=== PATIENT | female | born 1960 | race Caucasian/White ===

== ENCOUNTER 2016-12-24 03:41 | Inpatient (IN) ==
[~2016-12-24 03:41] MED LIST: Naloxone 0.4 MG/ML INJ IVP PRN
[2016-12-24] MEDS ORDERED: 0.9 % Sodium Chloride 500 ML IVC ONE (03:46)
--- NOTE | 2016-12-24 03:50 | Internal Med History&Physical ---
Date of Encounter: 12/24/16 Time of Encounter: 03:49 Assessment and Plan (1) Pyelonephritis, acute Current visit: Yes Status: Acute Treat with ceftriaxone. Urine cultures and blood cultures requested - patient is transferred from another hospital. He may need to check cultures sent from there, as the pt received antibiotics prior to transfer (2) Acute renal failure Current visit: Yes Status: Acute Possibly combination of prerenal and postobstructive. Continue IV fluids. Urology consultation for possible ureteral stent placement. Qualifiers: Acute renal failure type: unspecified Qualified Code(s): N17.9 - Acute kidney failure, unspecified (3) Ureteral stone Current visit: Yes Status: Acute Pt is in acute renal failure. Urology consultation for possible ureteral stent placement. (4) Chronic back pain Current visit: Yes Status: Chronic Pt has morpine pump - to continue Qualifiers: Back pain location: low back pain Back pain laterality: unspecified Sciatica presence: without sciatica Qualified Code(s): M54.5 - Low back pain; G89.29 - Other chronic pain (5) Hypertension Current visit: Yes Status: Chronic Hold antihypertensives Qualifiers: Hypertension type: essential hypertension Qualified Code(s): I10 - Essential (primary) hypertension (6) Hematoma of right hip Current visit: Yes Status: Acute No fractures reported. Conservative management. Qualifiers: Encounter type: initial encounter Qualified Code(s): S70.01XA - Contusion of right hip, initial encounter Internal Medicine - H&P: HPI Chief complaint: Confusion; abnormal labs Admitted From: Hospital to Hospital Transfer Plans for Post Hospital Care: Home History of present illness: Ms. Yeager is a 56 year old female With Past medical history significant for diabetes, GERD, hypertension, depression, chronic back pain - on morphine pump; s/p cholecystectomy, hysterectomy. She was sent to [facility] ER, by PCP for abnormal labs. She was noted to have UTI and ureteric stone and pt is transferred to [facility] for further management. Labs showed WBC of 422.7, hemoglobin 9.5, platelets 77, serum sodium 125 potassium 2.6, BUN 46, creatinine 2.44, bicarbonate 28, albumin 2.4, ALT 27 is, AST 41. INR 1.2. Urinalysis showed moderate leukocytes and positive nitrate; too numerous to count WBC and large blood. CT scan of head showed no depressed skull fracture or intracranial hemorrhage. CT scan of the abdomen and pelvis showed hematoma overlying the hip at the level of the trochanters. In the widest dimension measuring 7.8 cm without extension to the underlying muscle associated fractures. 7 mm calculus in the proximal right ureter with mild hydroureter and moderate hydronephrosis of the right kidney. Chest x-ray reported no acute radiographic findings. Patient reports that she was feeling confused, tired and sleepy on day yesterday. She denies chest pain, shortness of breath, cough, congestion, fever , chills. She denies abdominal pain, but reports dysuria. No hematuria. No diarrhea. Reports some nausea but no vomiting. Family Hx: Her father had diabetes; her sister had CAD/CABG Past Med Surg Social Fam HX - Past Medical History Medical history: diabetes, GERD, hypertension Psychiatric history: depression - Past Surgical History Surgical History: cholecystectomy, hysterectomy, orthopedic, other - Social History Smoking Status: Never smoker Smokeless Tobacco Status: No Alcohol use: none Drug use: none - Family History Mother Hx Family Genitourinary Disorders: No (No stones.) Internal Medicine - H&P: Meds AcetaZOLAMIDE [Diamox Sequels] 500 mg PO DAILY 06/17/16 [History] Alendronate Sodium [Fosamax] 70 mg PO QWEEK 06/17/16 [History] Bethanechol Chloride [Urecholine] 25 mg PO TID 06/17/16 [History] Calcium Carbonate [Calcium] 500 mg PO DAILY 06/17/16 [History] Cholecalciferol (D-3) [Vitamin D] 2,000 unit PO DAILY 06/17/16 [History] Furosemide [Lasix] 40 mg PO DAILY 06/17/16 [History] Gabapentin [Neurontin] 1,200 mg PO HS 06/17/16 [History] Gabapentin [Neurontin] 600 mg PO BID 06/17/16 [History] Ibuprofen [Motrin] 600 mg PO Q8HR PRN 06/17/16 [History] Omeprazole [PriLOSEC] 40 mg PO DAILY 06/17/16 [History] Vit#98/Ferrous Fum/FA [Kpn Tablet] 1 tab PO DAILY 06/17/16 [ History] Promethazine [Phenergan] 25 mg PO Q8HR PRN 06/17/16 [History] Sucralfate [Carafate] 1 gm PO BID 06/17/16 [History] Thyroid,Pork [[place] Thyroid] 60 mg PO DAILY 06/17/16 [History] Tizanidine HCl [Zanaflex] 4 mg PO BID PRN 06/17/16 [History] TraZODone 50 mg PO HS 06/17/16 [History] Venlafaxine HCl [Effexor Xr] 75 mg PO QAM 06/17/16 [History] Venlafaxine XR (24 HR) [Effexor XR] 37.5 mg PO HS 06/17/16 [History] Allergies losartan [From Cozaar] Allergy (Unverified 06/17/16 11:42) Hives spironolactone [From Aldactone] Allergy (Verified 06/17/16 11:42) Hives Oxycodone [From OxyContin] Adverse Reaction (Verified 06/17/16 11:42) See Comments unresponsive All Systems PM: A 10-system review of systems was performed and is negative for pertinent findings except as documented above in the HPI. - Constitutional Vitals: Temp Pulse Resp BP Pulse Ox 97.6 F 79 17 98/55 96 12/24/16 02:44 12/24/16 02:44 12/24/16 02:44 12/24/16 02:44 12/24/16 02:44 Exam: General: Not in acute distress at the time of my evaluation HEENT: Oral mucosa is dry. No conjunctival palor or scleral icterus Neck: No obvious neck swellings Lungs: Clear to auscultation Cardiac: Regular rate and rhythm. systolic murmur present Abdomen: Soft. Right renal angle tenderness present. Bowel sounds present Neurological: Alert and oriented. No gross localizing deficits Psych: Not aggressive or agitated Extremities: Trace leg edema Skin: No generalized rash Internal Med - H&P Results - Labs CBC & Chem 7: 12/24/16 05:31 12/24/16 05:31 - EKG Data -: EKG Interpreted by Myself EKG shows normal: sinus rhythm
[2016-12-24 05:49] LABS: INR 1.3; Prothrombin Time 14.5 Seconds (9.4-12.1)
[2016-12-24 05:50] LABS: Hematocrit 26.3 % (35.3-44.9); Hemoglobin 9.1 g/dL (11.5-15.4); Mean Corpuscular HGB Conc 34.6 g/dL (31.6-35.5); Mean Corpuscular Hemoglobin 28.7 pg (28.0-33.3); Mean Platelet Volume 9.1 fL (9.4-12.4); Red Blood Count 3.17 M/mcL (3.82-4.97); Red Cell Distribution Width 14.2 % (11.5-14.5)
[2016-12-24 05:57] LABS: Calcium 8.1 mg/dL (8.6-10.8); Magnesium 1.4 mg/dL (1.6-2.6); Potassium 2.6 mEq/L (3.5-4.5)
[2016-12-24] MEDS: Acetaminophen 325 MG TABLET PO PRN ×2 (05:57→18:46)
[2016-12-24 06:02] LABS: Platelet Count 65 K/mcL (140-400)
--- NOTE | 2016-12-24 07:14 | Urology - Consult Note ---
Date of Encounter: 12/24/16 Time of Encounter: 07:11 - Assessment and Plan (1) Ureteral stone Current Visit: Yes Status: Acute Assessment and plan: 56 year old woman with a uti and a right ureteral stone. I recommend proceeding with a cystoscopy and right ureteral stent placement. All risks of the procedure were informed. She is willing to proceed. Appreciate IM support. Will follow creatinine. Continue ceftriaxone. (2) Acute renal failure Current Visit: Yes Status: Acute Qualifiers: Qualified Code(s): N17.9 - Acute kidney failure, unspecified (3) Urinary tract infection Current Visit: Yes Status: Acute Qualifiers: Qualified Code(s): N10 - Acute pyelonephritis Urology CN:HPI Consult date: 12/24/16 Reason for consult Urology: Other (right ureteral stone and uti) History of present illness: 56 year old woman presents with right flank pain. The pain started 4-5 days ago and became more severe yesterday. She was seen at [facility]. A Ct showed a stone within the right proximal ureter with hydronephrosis. She had concern for a UTI and GILDA. She was transferred to [facility] for further care. The pain was severe and radiated to the groin. She denies any fevers or chills. The pain was sharp. Past Med Surg Social Fam HX - Past Medical History Medical history: diabetes, GERD, hypertension Psychiatric history: depression - Past Surgical History Surgical History: cholecystectomy, hysterectomy, orthopedic, other - Social History Smoking Status: Never smoker Smokeless Tobacco Status: No Alcohol use: none Drug use: none - Family History Mother Hx Family Genitourinary Disorders: No (No stones.) Medications and Allergies AcetaZOLAMIDE [Diamox Sequels] 500 mg PO DAILY 06/17/16 [History] Alendronate Sodium [Fosamax] 70 mg PO QWEEK 06/17/16 [History] Bethanechol Chloride [Urecholine] 25 mg PO TID 06/17/16 [History] Calcium Carbonate [Calcium] 500 mg PO DAILY 06/17/16 [History] Cholecalciferol (D-3) [Vitamin D] 2,000 unit PO DAILY 06/17/16 [History] Furosemide [Lasix] 40 mg PO DAILY 06/17/16 [History] Gabapentin [Neurontin] 1,200 mg PO HS 06/17/16 [History] Gabapentin [Neurontin] 600 mg PO BID 06/17/16 [History] Ibuprofen [Motrin] 600 mg PO Q8HR PRN 06/17/16 [History] Omeprazole [PriLOSEC] 40 mg PO DAILY 06/17/16 [History] Vit#98/Ferrous Fum/FA [Kpn Tablet] 1 tab PO DAILY 06/17/16 [ History] Promethazine [Phenergan] 25 mg PO Q8HR PRN 06/17/16 [History] Sucralfate [Carafate] 1 gm PO BID 06/17/16 [History] Thyroid,Pork [[place] Thyroid] 60 mg PO DAILY 06/17/16 [History] Tizanidine HCl [Zanaflex] 4 mg PO BID PRN 06/17/16 [History] TraZODone 50 mg PO HS 06/17/16 [History] Venlafaxine HCl [Effexor Xr] 75 mg PO QAM 06/17/16 [History] Venlafaxine XR (24 HR) [Effexor XR] 37.5 mg PO HS 06/17/16 [History] Allergies losartan [From Cozaar] Allergy (Unverified 06/17/16 11:42) Hives spironolactone [From Aldactone] Allergy (Verified 06/17/16 11:42) Hives Oxycodone [From OxyContin] Adverse Reaction (Verified 06/17/16 11:42) See Comments unresponsive Review of Systems - Constitutional no chills, no fever(s) - EENT Nose, mouth and throat: no dizziness - Cardiovascular no chest pain - Respiratory no dyspnea - Gastrointestinal no nausea, no vomiting - Genitourinary Genitourinary: flank pain, no hematuria - Musculoskeletal no back pain - Integumentary no erythema, no rash - Neurological no weakness - Psychiatric no suicidal ideation - Hematologic/Lymphatic no easy bleeding - Allergic/Immunologic no wheezing Exam Initial Vital Signs Temp Pulse Resp BP Pulse Ox 97.6 F 79 17 98/55 96 12/24/16 02:44 12/24/16 02:44 12/24/16 02:44 12/24/16 02:44 12/24/16 02:44 - General physical appearance Present: well developed, well nourished, no distress - Eyes Absent: icteric - ENT Present: normal nares - Neck Present: trachea midline - Respiratory Present: normal respiratory effort - Cardiovascular Cardiovascular exam IM: RRR - Abdomen Abdomen: Present: soft Urology Results - Labs 12/24/16 05:31 12/24/16 05:31 Abnormal lab results WBC 25.7 K/mcL (4.3-11.1) H 12/24/16 05:31 RBC 3.17 M/mcL (3.82-4.97) L 12/24/16 05:31 Hgb 9.1 g/dL (11.5-15.4) L 12/24/16 05:31 Hct 26.3 % (35.3-44.9) L 12/24/16 05:31 Plt Count 65 K/mcL (140-400) L 12/24/16 05:31 MPV 9.1 fL (9.4-12.4) L 12/24/16 05:31 PT 14.5 Seconds (9.4-12.1) H 12/24/16 05:31 Sodium 126 mEq/L (136-145) L 12/24/16 05:31 Potassium 2.6 mEq/L (3.5-4.5) L 12/24/16 05:31 Chloride 89 mEq/L (98-109) L 12/24/16 05:31 BUN 48 mg/dL (7-20) H 12/24/16 05:31 Creatinine 2.20 mg/dL (0.57-1.11) H 12/24/16 05:31 Est GFR ( Amer) 28 (> 60) L 12/24/16 05:31 Est GFR (Non-Af Amer) 23 (> 60) L 12/24/16 05:31 Calculated Osmolality 273 (280-300) L 12/24/16 05:31 Calcium 8.1 mg/dL (8.6-10.8) L 12/24/16 05:31 Magnesium 1.4 mg/dL (1.6-2.6) L 12/24/16 05:31 Diabetes panel 12/24/16 Range/Units 05:31 Sodium 126 L (136-145) mEq/L Potassium 2.6 L (3.5-4.5) mEq/L Chloride 89 L (98-109) mEq/L Carbon Dioxide 24 (19-29) mEq/L BUN 48 H (7-20) mg/dL Creatinine 2.20 H (0.57-1.11) mg/dL Glucose 72 (70-99) mg/dL Calcium 8.1 L (8.6-10.8) mg/dL Calcium panel 12/24/16 Range/Units 05:31 Calcium 8.1 L (8.6-10.8) mg/dL Pituitary panel 12/24/16 Range/Units 05:31 Sodium 126 L (136-145) mEq/L Potassium 2.6 L (3.5-4.5) mEq/L Chloride 89 L (98-109) mEq/L Carbon Dioxide 24 (19-29) mEq/L BUN 48 H (7-20) mg/dL Creatinine 2.20 H (0.57-1.11) mg/dL Glucose 72 (70-99) mg/dL Calcium 8.1 L (8.6-10.8) mg/dL Adrenal panel 12/24/16 Range/Units 05:31 Sodium 126 L (136-145) mEq/L Potassium 2.6 L (3.5-4.5) mEq/L Chloride 89 L (98-109) mEq/L Carbon Dioxide 24 (19-29) mEq/L BUN 48 H (7-20) mg/dL Creatinine 2.20 H (0.57-1.11) mg/dL Glucose 72 (70-99) mg/dL Calcium 8.1 L (8.6-10.8) mg/dL All other labs normal. - Imaging CT scan - abdomen: report reviewed, image reviewed CT scan - pelvis: report reviewed, image reviewed Consult Discharge Plan - Plan Referrals: NO,PCP [Primary Care Provider] -
[2016-12-24] MEDS ORDERED: Potassium Chloride 40 MEQ, Lidocaine 1% 2 ML in D5% in Water 500 ML IVPB ONE (08:11)
[2016-12-24] MEDS ORDERED: Magnesium Sulfate 2 GM in D5% in Water 100 ML IVPB ONE (08:13)
--- NOTE | 2016-12-24 09:52 | Anesthesia Evaluation PreOp ---
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 (Chronic Back Pain.....has morphine pump) Other Medical History: Renal (Acute Renal Failure...Hydronephrosis), Thyroid, GERD Anesthesia History: No Prior Anesthetic Complications : No Alcohol Use: none Drug use: none Medications and Allergies AcetaZOLAMIDE [Diamox Sequels] 500 mg PO DAILY 06/17/16 [History] Alendronate Sodium [Fosamax] 70 mg PO QWEEK 06/17/16 [History] Bethanechol Chloride [Urecholine] 25 mg PO TID 06/17/16 [History] Calcium Carbonate [Calcium] 500 mg PO DAILY 06/17/16 [History] Cholecalciferol (D-3) [Vitamin D] 2,000 unit PO DAILY 06/17/16 [History] Furosemide [Lasix] 40 mg PO DAILY 06/17/16 [History] Gabapentin [Neurontin] 1,200 mg PO HS 06/17/16 [History] Gabapentin [Neurontin] 600 mg PO BID 06/17/16 [History] Ibuprofen [Motrin] 600 mg PO Q8HR PRN 06/17/16 [History] Omeprazole [PriLOSEC] 40 mg PO DAILY 06/17/16 [History] Vit#98/Ferrous Fum/FA [Kpn Tablet] 1 tab PO DAILY 06/17/16 [ History] Promethazine [Phenergan] 25 mg PO Q8HR PRN 06/17/16 [History] Sucralfate [Carafate] 1 gm PO BID 06/17/16 [History] Thyroid,Pork [[place] Thyroid] 60 mg PO DAILY 06/17/16 [History] Tizanidine HCl [Zanaflex] 4 mg PO BID PRN 06/17/16 [History] TraZODone 50 mg PO HS 06/17/16 [History] Venlafaxine HCl [Effexor Xr] 75 mg PO QAM 06/17/16 [History] Venlafaxine XR (24 HR) [Effexor XR] 37.5 mg PO HS 06/17/16 [History] Allergies losartan [From Cozaar] Allergy (Unverified 06/17/16 11:42) Hives spironolactone [From Aldactone] Allergy (Verified 06/17/16 11:42) Hives Oxycodone [From OxyContin] Adverse Reaction (Verified 06/17/16 11:42) See Comments unresponsive - Meds/Allergy Pre-op Review Medications Reviewed: Yes Allergies Reviewed: Yes Beta Blockers on Current Med List: No Anesthesia Results - Labs 12/24/16 05:31 12/24/16 05:31 - Imaging EKG: report reviewed (SR) Anesthesia Exam O2 Sat Height 1.68 m Weight 84.5 kg O2 Sat by Pulse Oximetry 98 O2 Sat by Pulse Oximetry 98 O2 Sat by Pulse Oximetry 96 O2 Sat by Pulse Oximetry 96 O2 Sat by Pulse Oximetry 96 Vital Signs Temp Pulse Resp BP Pulse Ox 97.6 F 79 17 98/55 96 12/24/16 02:44 12/24/16 02:44 12/24/16 02:44 12/24/16 02:44 12/24/16 02:44 Height: 5'6 Weight: 186 lbs NPO (# of Hours): MN - HEENT Pupil (Motor): Pupils equal, EOMI Oral Opening: Greater than 3 - 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 LOC: Oriented 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 Motor: Normal RUE, Normal LUE, Normal RLE, Normal LLE, Normal Face 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 - Cardiac Rhythm: Regular Murmur: None JVD: No Carotid Bruit: No - Pulmonary Breath Sounds: bilateral Clear Respiratory Effort: Symmetrical Anesthesia Assess/Plan ASA Score: 3 (HTN, ARF, Chronic Pain) Modified Franny Scale for Level of Consciousness: Cooperative, oriented, and tranquil Anesthetic Plan: General Monitoring Plan: Standard Monitors Recovery Plan: PACU (Discussed GA,agrees to proceed) <Humberto Olvera - Last Filed: 12/24/16 10:27> Anesthesia Results - Labs 12/24/16 05:31 12/24/16 05:31 Anesthesia Exam - HEENT Mallampati: II Teeth: Edentulous - 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
--- NOTE | 2016-12-24 10:07 | Internal Med Progress Note ---
Date of Encounter: 12/24/16 Time of Encounter: 09:00 - Assessment and plan (1) DVT prophylaxis Current Visit: Yes Status: Acute Assessment and plan: EPCD (2) Syncope Current Visit: Yes Status: Acute Assessment and plan: Patient had a syncope one week ago. Etiology is undetermined. Most likely due to dehydration caused by recent UTI. However, will often duplex carotid, echocardiogram, and cardiac monitoring to rule out cardio neurology problems Qualifiers: Syncope type: vasovagal syncope Qualified Code(s): R55 - Syncope and collapse (3) Hypokalemia Current Visit: Yes Status: Acute Assessment and plan: We will continue potassium supplement. (4) Acute renal failure Current Visit: Yes Status: Acute Assessment and plan: Will continue hydration and follow-up renal function Qualifiers: Acute renal failure type: unspecified Qualified Code(s): N17.9 - Acute kidney failure, unspecified (5) Hematoma of right hip Current Visit: Yes Status: Acute Assessment and plan: Due to recently syncope and a fall. Closely monitoring H and H. Qualifiers: Encounter type: initial encounter Qualified Code(s): S70.01XA - Contusion of right hip, initial encounter (6) Pyelonephritis, acute Current Visit: Yes Status: Acute Assessment and plan: Continue Rocephin treatment. Follow-up urine culture (7) Ureteral stone Current Visit: Yes Status: Acute Assessment and plan: Urology on case, plan for ureteral stent (8) Urinary tract infection Current Visit: Yes Status: Acute Assessment and plan: Plan as above Qualifiers: Urinary tract infection type: acute pyelonephritis Qualified Code(s): N10 - Acute pyelonephritis (9) Chronic back pain Current Visit: Yes Status: Chronic Assessment and plan: Continue morphine pump for chronic back pain. Follow-up with pain management as outpatient Qualifiers: Back pain location: low back pain Back pain laterality: unspecified Sciatica presence: without sciatica Qualified Code(s): M54.5 - Low back pain; G89.29 - Other chronic pain (10) Hypertension Current Visit: Yes Status: Chronic Assessment and plan: BP is not high. We will hold hypertension medications now because patient has syncope. Qualifiers: Hypertension type: essential hypertension Qualified Code(s): I10 - Essential (primary) hypertension - Time Spent With Patient 25 - 35 minutes - Subjective Interval history: Patient is a 56-year-old female admitted for UTI and ureter stone. Past medical history is significant for diabetes, hypertension, recent syncope, chronic back pain on morphine pump. Hx of bariatric surgery Patient was seen and examined. She had no fever. Still complaining of right flank pain. Vital signs stable. Urology saw patient and the plan for stenting today. Patient has low potassium and a low magnesium level, will give supplement. Patient has syncope one week ago, we will continuously monitor her heart rate, place echo and duplex carotid. - Constitutional Vitals: Temp Pulse Resp BP Pulse Ox 97.4 F L 76 16 102/58 98 12/24/16 08:05 12/24/16 08:05 12/24/16 08:05 12/24/16 08:05 12/24/16 08:38 General appearance: Present: A&O X 3, no acute distress, answers questions appropriately - Head Head exam: Present: atraumatic, normocephalic - Eye Eye exam: Present: PERRL, conjuntiva pink, sclera anicteric Pupils: Present: PERRL - Neck Neck exam general surgery: Present: supple, trachea midline. Absent: lymphadenopathy - Respiratory Respiratory exam: Present: CTAB. Absent: accessory muscle use, rales, rhonchi, wheezes - Cardiovascular Cardiovascular exam: Present: RRR, +S1, +S2. Absent: diastolic murmur, gallop, rubs, systolic murmur - GI/Abdominal GI/Abdominal exam: Present: normal bowel sounds, soft, no peritoneal signs. Absent: distended, tenderness - Extremities Exam Extremities exam: Present: warm, radial pulses palpable and symetrical. Absent : calf tenderness, cyanotic, pedal edema - Neurological Exam Neurological exam: Present: CN II-XII intact, oriented X3, no focal deficits. Absent: pronater drift, facial droop, speech deficit - Skin Skin exam: Present: dry, intact Internal Medicine: Result - Labs CBC & Chem 7: 12/24/16 05:31 12/24/16 05:31 Labs: Short CBC 12/24/16 Range/Units 05:31 WBC 25.7 H (4.3-11.1) K/mcL Hgb 9.1 L (11.5-15.4) g/dL Hct 26.3 L (35.3-44.9) % Plt Count 65 L (140-400) K/mcL BMP 12/24/16 05:31 Sodium 126 L Potassium 2.6 L Chloride 89 L Carbon Dioxide 24 BUN 48 H Creatinine 2.20 H Glucose 72 Calcium 8.1 L - ABG Interpretation ABG results: PT/INR, D-dimer PT 14.5 Seconds (9.4-12.1) H 12/24/16 05:31 Consult Discharge Plan - Plan Referrals: NO,PCP [Primary Care Provider] -
[2016-12-24] MEDS ORDERED: *HR* Midazolam HCl 2 MG/2 ML VIAL ONE (10:18)
[2016-12-24] MEDS ORDERED: Lidocaine -MPF 2% 2 ML VIAL ONE (10:18)
[2016-12-24] MEDS ORDERED: *HR* FentaNYL (PF) 100 MCG/2 ML VIAL ONE (10:18)
[2016-12-24] MEDS ORDERED: *HR* Propofol 200 MG/20 ML VIAL IVP ONE (10:18)
--- NOTE | 2016-12-24 11:15 | Operative Note ---
Date of procedure: 12/24/16 Pre-op diagnosis: Right ureteral stone, urinary tract infection Post-op diagnosis: same Procedure: Cystoscopy, right retrograde pyelogram, right ureteral stent placement. Implants: 6 Slovak by 24 cm double-J stent. Complications: None. Anesthesia: GETA Surgeon: Mikey Arteaga Estimated blood loss (cc): 1 Specimen: none Condition: stable Disposition: PACU Procedure in Detail: Indications: Teresita is a 56-year-old woman who has a history of nephrolithiasis and a urinary tract infection. She had a CT which showed a right proximal ureteral stone. She elected to undergo a cystoscopy and right ureteral stent placement. She was aware of the risks of the procedure including but not limited to bleeding, infection, injury to other structures, need for further procedures, stent irritation, need for nephrostomy tube, need for open repair, risks otherwise unforeseen, and the risk of anesthesia. She is willing to proceed. Procedure in Detail: After informed consent was obtained the patient was brought back to the operating room and placed in supine position. A time out was performed. General anesthesia was administered and an LMA was placed. She was then placed in the lithotomy position. She was prepped and draped in the usual sterile fashion. Cystoscopy was performed. The anterior urethra was normal. There was no evidence of bladder tumors. The ureteral orifices were in the normal orthotopic position. There was no duplication of the ureteral orifices. She had a large cystocele. The zip wire was placed in the right ureteral orifice. The open- ended catheter was placed over the wire into the distal ureter. The wire was placed into the kidney under fluoroscopic guidance. The open ended catheter was advanced into the kidney beyond the stone. A retrograde pyelogram was performed. There is no hydronephrosis. The wire was replaced. A 6 Slovak by 24cm JJ stent was then placed. There was a bit of a J-hook in the stent going into the lower pole calyx. The dangle strings were removed. The bladder was drained with a Mason catheter. The patient was then awakened from general anesthesia and brought to recovery room in good condition. All sponge, needle, and instrument counts were correct.
--- NOTE | 2016-12-24 13:49 | Anesthesia Evaluation Post Op ---
Date of Encounter: 12/24/16 Time of Encounter: 12:30 - Vital Signs Vital Signs: Vital Signs/O2 Sat/Glucose, Most Current Temp Pulse Resp BP Pulse Ox 12/24/16 12:13 97.9 F 80 16 98/44 97 12/24/16 12:02 97.2 F L 75 12 107/58 98 12/24/16 11:52 97.2 F L 71 12 99/58 99 12/24/16 11:42 71 10 100/59 97 12/24/16 11:32 69 8 100/56 97 12/24/16 11:22 97.2 F L 70 8 96/55 97 - Lungs Lungs: Clear Ascult./Percussion - Airway Airway: Non-obstructed - Cardiovascular Regular Rate - Mental Status Mental Status: Alert & Oriented, Answers Appropriately - Pain Pain Scale: 0 - Nausea Vomiting Nausea Vomiting: Not Present - Hydration Hydration: Ice chips - Discharge PostOp Status: Transfer Patient to floor
[2016-12-24] MEDS: 0.9 % Sodium Chloride 1,000 ML IVC SCH ×2 (18:36→18:38)
--- NOTE | 2016-12-24 19:47 | Carotid Imaging Report ---
Carotid Duplex Patient Name:Teresita Yeager Order Number:[id number] Procedure Date:12/24/2016 Date:8Age:56 yrs Gender:Female Lt BP:117 / 68 mmHg Rt.BP:117 / 68 mmHgHeart Rate: Location:[facility] Room #: 2NE34 Bag Machine Operator:Renee Salazar Referring MD:Guy Lovell MD guitar teacher:None Reading MD:Jose Zuniga MD , FACS Primary Indications:Syncope Risk Factors Yes/No Hypertension Diabetes Impressions: Findings: Right proximal ICA has nonstenotic plaque. Findings: Left carotid system is essentially normal. Findings Carotid Duplex: Right: There is nonstenotic plaque in the right proximal internal carotid artery. There is smooth heterogeneous plaque. There is nonstenotic plaque in the right eca. There is smooth heterogeneous plaque. Prior Study: No prior study available for comparison. Carotid Results Right PSV EDV Assessment Proximal CCA 137 11 Normal Mid CCA 63 16 Normal Distal CCA 55 16 Normal Bifurcation 59 18 Normal Proximal ICA 61 19 Non Stenotic Plaque Mid ICA 101 39 Normal Distal ICA 109 38 Normal ECA 97 11 Non Stenotic Plaque Vertebral Artery 69 18 Antegrade Flow Left PSV EDV Assessment Proximal CCA 100 20 Normal Mid CCA 71 18 Normal Distal CCA 75 23 Normal Bifurcation 64 21 Normal Proximal ICA 76 31 Normal Mid ICA 79 34 Normal Distal ICA 81 28 Normal ECA 99 14 Normal Vertebral Artery 78 20 Antegrade Flow Ratio's Right ICA/CCA Ratio: 1.73 ICA/CCA Values: 109/63 Left ICA/CCA Ratio: 1.14 ICA/CCA Values: 81/71 Updated by Jose Zuniga MD, FACS on 12/24/2016 7:43:38 PM Jose Zuniga MD electronically signed on 12/24/2016 7:44:12 PM with status of Final
[2016-12-24] MEDS ORDERED: NON-FORMULARY MEDICATION 1 EACH EACH (Alendronate Sodium [Fosamax] 70 MG) PO SCH (23:30)
[2016-12-25] MEDS: 0.9 % Sodium Chloride 1,000 ML IVC SCH (03:36)
[2016-12-25 07:02] LABS: Calcium 8.4 mg/dL (8.6-10.8); Potassium 3.1 mEq/L (3.5-4.5)
[2016-12-25 07:07] LABS: Basophils % 0.2 %; Hematocrit 25.9 % (35.3-44.9); Hemoglobin 9.1 g/dL (11.5-15.4); Mean Corpuscular HGB Conc 35.1 g/dL (31.6-35.5); Mean Corpuscular Hemoglobin 29.1 pg (28.0-33.3); Mean Corpuscular Volume 82.7 fL (83.0-100.0); Red Blood Count 3.13 M/mcL (3.82-4.97); Red Cell Distribution Width 14.7 % (11.5-14.5)
[2016-12-25 07:10] LABS: Basophils # 0.1 K/mcL (0.0-0.2); Immature Granulocytes % 4.6 % (0-4); Immature Platelets 4.4 % (1.1-6.1); Lymphocytes # 0.6 K/mcL (0.6-4.6); Lymphocytes % 2.4 %; Mean Platelet Volume 9.8 fL (9.4-12.4); Monocytes % 5.2 %; Neutrophils # 21.1 K/mcL (1.6-8.9); Segmented Neutrophils % 87.6 %
[2016-12-25] MEDS ORDERED: Naloxone 0.4 MG/ML INJ IVP PRN (07:18)
[2016-12-25] MEDS ORDERED: 0.9 % Sodium Chloride 1,000 ML IVC SCH (07:18)
[2016-12-25 07:25] LABS: Monocytes # 1.3 K/mcL (0.0-1.3); Platelet Count 82 K/mcL (140-400)
[2016-12-25] MEDS ORDERED: Sucralfate 1 GM TABLET PO SCH (07:30)
[2016-12-25] MEDS ORDERED: ZOLEDRONIC ACID 5 MG IV SCH (08:15)
[2016-12-25] MEDS ORDERED: [UNRECOGNIZED DRUG - OTHER] IV SCH (08:15)
--- NOTE | 2016-12-25 08:23 | Urology Progress Note ---
Date of Encounter: 12/25/16 Time of Encounter: 08:21 - Assessment and Plan (1) Ureteral stone Current Visit: Yes Status: Acute Assessment and plan: Status post right ureteral stent placement. We will treat the stone definitively at a later date once her infection clears. (2) Acute renal failure Current Visit: Yes Status: Acute Assessment and plan: Right ureteral stent has been placed. We'll closely monitor her renal function. If it does not improve, consider nephrology consultation. Qualifiers: Acute renal failure type: unspecified Qualified Code(s): N17.9 - Acute kidney failure, unspecified (3) Urinary tract infection Current Visit: Yes Status: Acute Assessment and plan: Continue IV antibiotics. Await urine culture results. Qualifiers: Urinary tract infection type: acute pyelonephritis Qualified Code(s): N10 - Acute pyelonephritis Progress Note Narrative: Status post cystoscopy and right ureteral stent placement. Mason catheter was placed. She has clear urine. No fevers overnight. White blood cell count and creatinine are still elevated. Urine cultures are pending. She is tolerating diet. Objective Initial Vital Signs Temp Pulse Resp BP Pulse Ox 97.6 F 79 17 98/55 96 12/24/16 02:44 12/24/16 02:44 12/24/16 02:44 12/24/16 02:44 12/24/16 02:44 - General physical appearance Present: well developed, well nourished, no distress - Respiratory Present: normal respiratory effort - Abdomen Present: soft - Genitourinary Urine Appearance: Present: Clear - Labs 12/25/16 06:33 12/25/16 06:33 Diabetes panel 12/25/16 Range/Units 06:33 Sodium 131 L (136-145) mEq/L Potassium 3.1 L (3.5-4.5) mEq/L Chloride 96 L (98-109) mEq/L Carbon Dioxide 24 (19-29) mEq/L BUN 54 H (7-20) mg/dL Creatinine 2.15 H (0.57-1.11) mg/dL Glucose 154 H (70-99) mg/dL Calcium 8.4 L (8.6-10.8) mg/dL Calcium panel 12/25/16 Range/Units 06:33 Calcium 8.4 L (8.6-10.8) mg/dL Pituitary panel 12/25/16 Range/Units 06:33 Sodium 131 L (136-145) mEq/L Potassium 3.1 L (3.5-4.5) mEq/L Chloride 96 L (98-109) mEq/L Carbon Dioxide 24 (19-29) mEq/L BUN 54 H (7-20) mg/dL Creatinine 2.15 H (0.57-1.11) mg/dL Glucose 154 H (70-99) mg/dL Calcium 8.4 L (8.6-10.8) mg/dL Adrenal panel 12/25/16 Range/Units 06:33 Sodium 131 L (136-145) mEq/L Potassium 3.1 L (3.5-4.5) mEq/L Chloride 96 L (98-109) mEq/L Carbon Dioxide 24 (19-29) mEq/L BUN 54 H (7-20) mg/dL Creatinine 2.15 H (0.57-1.11) mg/dL Glucose 154 H (70-99) mg/dL Calcium 8.4 L (8.6-10.8) mg/dL - VTE Documentation of Mechanical Device: Intermittent pneumatic compression device Consult Discharge Plan - Plan Referrals: NO,PCP [Primary Care Provider] -
--- NOTE | 2016-12-25 08:44 | ECHO - Doppler Report ---
Echocardiogram Name: Teresita Yeager Date of Study: 12/24/2016 Date: 1960 Ht: 66.0 in Medical Record#: [id number] Age: 56 Wt: 186.0 lb Gender: Female BSA: 1.94 Order #: [id number] Location: [facility] Room #: 2NE34 Reading Physician: Maximino Guillen DO, KAYLIE, LOTTIE [place] Technical Assistant: Renee Salazar Ordering Physician: Guy Lovell MD Primary Physician: None Indications: Syncope Impressions: LVEF 60-65%. Normal LV chamber size, wall thickness and function. Mild left ventricular diastolic dysfunction. Normal right ventricular structure and function. Mild pulmonary hypertension. Estimated RVSP is 41 mmHg. No significant valvular dysfunction. Left Ventricular Wall Motion: Rest Echo Findings All wall segments showed normal motion. Findings: Study Quality * Technically adequate exam. ECG Findings * Normal sinus rhythm. Left Ventricle * LVEF 60-65%. * Normal LV chamber size, wall thickness and function. * Mild left ventricular diastolic dysfunction. Right Ventricle * Normal right ventricular structure and function. Left Atrium * Mild to moderately dilated left atrium. Right Atrium * Mildly dilated right atrium. Interatrial Septum * Interatrial septum not well evaluated. Aortic Valve * Trileaflet aortic valve. * Mildly sclerotic aortic valve leaflets. * No aortic regurgitation. * No aortic stenosis. Mitral Valve * Normal mitral valve structure and function. * No mitral stenosis. * Trace mitral regurgitation. Tricuspid Valve * Normal tricuspid valve structure and function. * Trace tricuspid regurgitation. * Mild pulmonary hypertension. * Estimated RVSP is 41 mmHg. * Estimated RA pressure is 5 mmHg. Pulmonic Valve * Pulmonic valve is not well visualized. * No pulmonic regurgitation. Aorta * Normally sized aortic root. Pericardium * The pericardium appears normal. IVC * Normal IVC dimensions and inspiratory collapse. Pulmonary Artery * Normal visualized portions of the main pulmonary artery. History Hypertension Diabetes Family History of CAD Measurements: BP: 117/ 68 2D Normal Values IVSd: 1.10 cm 0.6 - 1.0 cm LVIDd: 5.00 cm 3.7 - 5.6 cm LVPWd: 1.00 cm 0.6 - 1.1 cm LVIDs: 3.50 cm 1.5 - 3.6 cm AO: 3.20 cm < 4.0 cm LA: 4.40 cm 2.0 - 4.0cm %FS: 30.00 cm >25 % LA volume: 86 Mitral Valve Peak E:.94 m/sec Peak A:1.00 m/sec E/A Ratio:0.9 Peak E' Lat Ruddy:12.2 cm/s Peak E' Med Ruddy:5.07 cm/s E/E' Lat Ratio:7.7 E/E' Med Ratio:18.6 Tricuspid Valve TV Regurg Peak Grad: 36.00mmHg TV Regurg Peak Ruddy: 3.01m/sec Updated by Maximino Guillen DO, KAYLIE, JB, LOTTIE on 12/25/2016 8:37:51 AM electronically signed on 12/25/2016 8:38:31 AM with status of Final Wall Motion Singh: 1=Normal, 2=Hypokinesis, 3=Akinesis, 4=Dyskinesis, 5=Aneurysmal, 6=Hyperkinetic, X=Not Visualized (Blank)=Missing
[2016-12-25 08:49] LABS: Platelet Estimate Slight Decrease (Normal)
[2016-12-25] MEDS ORDERED: Thyroid (Amour) 30 MG TABLET PO SCH (09:00)
[2016-12-25] MEDS ORDERED: Fluticasone Propionate Nasal 50 MCG/SPRAY BOTTLE NS SCH ×2 (09:00)
[2016-12-25] MEDS ORDERED: THYROID PORK 60 MG PO SCH (09:00)
[2016-12-25] MEDS ORDERED: Venlafaxine XR (24 HR) 75 MG CAP.ER.24H PO SCH (09:00)
[2016-12-25] MEDS: Furosemide 40 MG TABLET PO SCH (09:49)
[2016-12-25] MEDS: Prenatal Vit/FA 1 EACH TABLET PO SCH (09:49)
[2016-12-25] MEDS: Acetaminophen 325 MG TABLET PO PRN ×2 (09:49→17:37)
[2016-12-25] MEDS: Gabapentin 300 MG CAPSULE PO SCH ×2 (09:49→21:27)
[2016-12-25] MEDS: metOLazone 5 MG TABLET PO SCH ×2 (09:50→17:37)
[2016-12-25] MEDS ORDERED: Potassium Chloride Elixir 20 MEQ/15 ML UDC PO ONE (10:05)
[2016-12-25] MEDS: Potassium Chloride Elixir 20 MEQ/15 ML UDC PO SCH (10:21)
--- NOTE | 2016-12-25 16:50 | Internal Med Progress Note ---
Date of Encounter: 12/25/16 Time of Encounter: 10:00 - Assessment and plan (1) DVT prophylaxis Current Visit: Yes Status: Acute Assessment and plan: EPCD (2) Syncope Current Visit: Yes Status: Acute Assessment and plan: Patient had a syncope one week ago. Etiology is undetermined. Most likely due to dehydration caused by recent UTI. However, will often duplex carotid, echocardiogram, and cardiac monitoring to rule out cardio neurology problems. Echo and duplex carotid results unremarkable. Qualifiers: Syncope type: vasovagal syncope Qualified Code(s): R55 - Syncope and collapse (3) Hypokalemia Current Visit: Yes Status: Acute Assessment and plan: Still low potassium but improved. We will continue potassium supplement. (4) Acute renal failure Current Visit: Yes Status: Acute Assessment and plan: Will continue hydration and follow-up renal function Qualifiers: Acute renal failure type: unspecified Qualified Code(s): N17.9 - Acute kidney failure, unspecified (5) Hematoma of right hip Current Visit: Yes Status: Acute Assessment and plan: Due to recently syncope and a fall. Closely monitoring H and H. Qualifiers: Encounter type: initial encounter Qualified Code(s): S70.01XA - Contusion of right hip, initial encounter (6) Pyelonephritis, acute Current Visit: Yes Status: Acute Assessment and plan: Continue Rocephin treatment. Follow-up urine culture (7) Ureteral stone Current Visit: Yes Status: Acute Assessment and plan: Urology on case, Did ureteral stent (8) Urinary tract infection Current Visit: Yes Status: Acute Assessment and plan: Plan as above Qualifiers: Urinary tract infection type: acute pyelonephritis Qualified Code(s): N10 - Acute pyelonephritis (9) Chronic back pain Current Visit: Yes Status: Chronic Assessment and plan: Continue morphine pump for chronic back pain. Follow-up with pain management as outpatient Qualifiers: Back pain location: low back pain Back pain laterality: unspecified Sciatica presence: without sciatica Qualified Code(s): M54.5 - Low back pain; G89.29 - Other chronic pain (10) Hypertension Current Visit: Yes Status: Chronic Assessment and plan: BP is not high. We will hold hypertension medications now because patient has syncope. Qualifiers: Hypertension type: essential hypertension Qualified Code(s): I10 - Essential (primary) hypertension - Time Spent With Patient 25 - 35 minutes - Subjective Interval history: Patient is a 56-year-old female admitted for UTI and ureter stone. Past medical history is significant for diabetes, hypertension, recent syncope, chronic back pain on morphine pump. Hx of bariatric surgery Patient was seen and examined. She had no fever. Had ureter stenting. Vital signs stable. White count is still high. Continue antibiotic treatment. Waiting for culture result. Echo and duplex carotid result unremarkable. - Constitutional Vitals: Temp Pulse Resp BP Pulse Ox 98.2 F 70 15 116/70 97 12/25/16 15:00 12/25/16 15:00 12/25/16 15:00 12/25/16 15:00 12/25/16 15:00 General appearance: Present: A&O X 3, no acute distress, answers questions appropriately - Head Head exam: Present: atraumatic, normocephalic - Eye Eye exam: Present: PERRL, conjuntiva pink, sclera anicteric Pupils: Present: PERRL - Neck Neck exam general surgery: Present: supple, trachea midline. Absent: lymphadenopathy - Respiratory Respiratory exam: Present: CTAB. Absent: accessory muscle use, rales, rhonchi, wheezes - Cardiovascular Cardiovascular exam: Present: RRR, +S1, +S2. Absent: diastolic murmur, gallop, rubs, systolic murmur - GI/Abdominal GI/Abdominal exam: Present: normal bowel sounds, soft, no peritoneal signs. Absent: distended, tenderness - Extremities Exam Extremities exam: Present: warm, radial pulses palpable and symetrical. Absent : calf tenderness, cyanotic, pedal edema - Neurological Exam Neurological exam: Present: CN II-XII intact, oriented X3, no focal deficits. Absent: pronater drift, facial droop, speech deficit - Skin Skin exam: Present: dry, intact Internal Medicine: Result - Labs CBC & Chem 7: 12/25/16 06:33 12/25/16 06:33 Labs: Short CBC 12/25/16 Range/Units 06:33 WBC 24.1 H (4.3-11.1) K/mcL Hgb 9.1 L (11.5-15.4) g/dL Hct 25.9 L (35.3-44.9) % Plt Count 82 L (140-400) K/mcL Neutrophils # 21.1 H (1.6-8.9) K/mcL BMP 12/25/16 06:33 Sodium 131 L Potassium 3.1 L Chloride 96 L Carbon Dioxide 24 BUN 54 H Creatinine 2.15 H Glucose 154 H Calcium 8.4 L - ABG Interpretation ABG results: PT/INR, D-dimer PT 14.5 Seconds (9.4-12.1) H 12/24/16 05:31 - VTE Documentation of Mechanical Device: Intermittent pneumatic compression device Consult Discharge Plan - Plan Referrals: NO,PCP [Primary Care Provider] -
[2016-12-25] MEDS ORDERED: Gabapentin 400 MG CAPSULE PO SCH (21:00)
[2016-12-26] MEDS: Acetaminophen 325 MG TABLET PO PRN ×3 (04:17→21:41)
[2016-12-26 06:57] LABS: Calcium 8.7 mg/dL (8.6-10.8); Magnesium 1.6 mg/dL (1.6-2.6); Potassium 3.2 mEq/L (3.5-4.5)
[2016-12-26 07:08] LABS: Hemoglobin 9.9 g/dL (11.5-15.4); Mean Corpuscular HGB Conc 35.4 g/dL (31.6-35.5); Mean Corpuscular Hemoglobin 29.7 pg (28.0-33.3); Mean Corpuscular Volume 84.1 fL (83.0-100.0); Mean Platelet Volume 9.3 fL (9.4-12.4); Platelet Count 91 K/mcL (140-400); Red Blood Count 3.33 M/mcL (3.82-4.97); Red Cell Distribution Width 15.1 % (11.5-14.5)
[2016-12-26] MEDS ORDERED: Potassium Chloride Elixir 20 MEQ/15 ML UDC PO ONE (07:37)
[2016-12-26 08:02] LABS: Lymphocytes # 1.2 K/mcL (0.6-4.6); Monocytes # 1.2 K/mcL (0.0-1.3); Neutrophils # 28.3 K/mcL (1.6-8.9); Platelet Estimate Decreased (Normal)
[2016-12-26] MEDS ORDERED: Aminoglycoside Consult 1 EACH MC ONE (08:38)
[2016-12-26] MEDS: Furosemide 40 MG TABLET PO SCH (09:07)
[2016-12-26] MEDS: Gabapentin 300 MG CAPSULE PO SCH (09:07)
[2016-12-26] MEDS: Prenatal Vit/FA 1 EACH TABLET PO SCH (09:08)
[2016-12-26] MEDS: metOLazone 5 MG TABLET PO SCH (09:08)
[2016-12-26] MEDS: Potassium Chloride Elixir 20 MEQ/15 ML UDC PO SCH (09:12)
--- NOTE | 2016-12-26 11:31 | Urology Progress Note ---
Date of Encounter: 12/26/16 Time of Encounter: 11:28 - Assessment and Plan (1) Ureteral stone Current Visit: Yes Status: Acute Assessment and plan: s/p right ureteral stent placment. Still with elevated WBC 1. Will check kUb today. (2) Acute renal failure Current Visit: Yes Status: Acute Assessment and plan: Creatinine is persistently elevated. Will monitor. If stent is dislodged, we may need to replace or proceed with definitive ureteral stone treatment. Qualifiers: Acute renal failure type: unspecified Qualified Code(s): N17.9 - Acute kidney failure, unspecified (3) Urinary tract infection Current Visit: Yes Status: Acute Assessment and plan: I called [facility]. E. coli grew out, but it is sensitive to the ceftriaxone. It was resistant to bactrim and augmentin. Qualifiers: Urinary tract infection type: acute pyelonephritis Qualified Code(s): N10 - Acute pyelonephritis Progress Note Narrative: s/p right ureteral stent placement. Urine is more clear. No fevers. WBC has risen. Creatinine has not improved much. She notes some right flank pain. Objective Initial Vital Signs Temp Pulse Resp BP Pulse Ox 97.6 F 79 17 98/55 96 12/24/16 02:44 12/24/16 02:44 12/24/16 02:44 12/24/16 02:44 12/24/16 02:44 - General physical appearance Present: well developed, well nourished, no distress - Respiratory Present: normal respiratory effort - Abdomen Present: soft - Genitourinary Urine Appearance: Present: Clear - Labs 12/26/16 06:15 12/26/16 06:15 Diabetes panel 12/26/16 Range/Units 06:15 Sodium 133 L (136-145) mEq/L Potassium 3.2 L (3.5-4.5) mEq/L Chloride 97 L (98-109) mEq/L Carbon Dioxide 23 (19-29) mEq/L BUN 58 H (7-20) mg/dL Creatinine 2.32 H (0.57-1.11) mg/dL Glucose 147 H (70-99) mg/dL Calcium 8.7 (8.6-10.8) mg/dL Calcium panel 12/26/16 Range/Units 06:15 Calcium 8.7 (8.6-10.8) mg/dL Pituitary panel 12/26/16 Range/Units 06:15 Sodium 133 L (136-145) mEq/L Potassium 3.2 L (3.5-4.5) mEq/L Chloride 97 L (98-109) mEq/L Carbon Dioxide 23 (19-29) mEq/L BUN 58 H (7-20) mg/dL Creatinine 2.32 H (0.57-1.11) mg/dL Glucose 147 H (70-99) mg/dL Calcium 8.7 (8.6-10.8) mg/dL Adrenal panel 12/26/16 Range/Units 06:15 Sodium 133 L (136-145) mEq/L Potassium 3.2 L (3.5-4.5) mEq/L Chloride 97 L (98-109) mEq/L Carbon Dioxide 23 (19-29) mEq/L BUN 58 H (7-20) mg/dL Creatinine 2.32 H (0.57-1.11) mg/dL Glucose 147 H (70-99) mg/dL Calcium 8.7 (8.6-10.8) mg/dL - VTE Documentation of Mechanical Device: Intermittent pneumatic compression device Consult Discharge Plan - Plan Referrals: NO,PCP [Primary Care Provider] -
--- NOTE | 2016-12-26 11:46 | Nephrology Consult Note ---
Date of Encounter: 12/26/16 Time of Encounter: 10:30 History of Present Illness - Reason for Consult Acute Kidney Injury - History of Present Illness A/P-REJI related to ureteral calculi, hydronephrosis, volume depletion from diuretics. Renal stone may be R/T gastric bypass surgery. Will stop diuretics, avoid nephrotoxins. When Mason dc'd check bladder fct. Will need outpatient metabolic workup outpatient for renal stone disease. Ms. Yeager is a 56 year old female with UTI and right ureteral stone with mild hydroureter and moderate hydronephrosis. S/P cystocopy with right ureteral stent on December 24. Has Mason catheter. Creat has been elevated since admission, 2.2, 2.15 and 2.32 today. Creatinine 0.75 in May 2016. She is currently on diuretics; Lasix and Metolazone. At today's consult Ms. Yeager is sitting on edge of bed, states feeling much better. She admits history of diabetes on insulin and hypertenion since 1989's but has since resolved with 100# weight loss following gastric bypass in 2000. She denies past or present NSAID use. She admits proteinuria in past, denies hematuria. States current renal stone event is only incident. Admits chronic UTI 's ages [age] and resolved on own with no further occurrence. She admits chronic , generalized swelling with no known etiology which is why she is on diuretics. Past Med Surg Social Fam HX - Past Medical History Medical history: diabetes, GERD, hypertension Psychiatric history: depression - Past Surgical History Surgical History: cholecystectomy, hysterectomy, orthopedic, other - Social History Smoking Status: Never smoker Smokeless Tobacco Status: No Alcohol use: none Drug use: none - Family History Mother Hx Family Genitourinary Disorders: No (No stones.) Medications and Allergies Alendronate Sodium [Fosamax] 70 mg PO QWEEK 06/17/16 [History] Bethanechol Chloride [Urecholine] 25 mg PO TID 06/17/16 [History] Furosemide [Lasix] 40 mg PO DAILY 06/17/16 [History] Gabapentin [Neurontin] 1,200 mg PO HS 06/17/16 [History] Gabapentin [Neurontin] 600 mg PO BID 06/17/16 [History] Omeprazole [PriLOSEC] 40 mg PO DAILY 06/17/16 [History] Vit#98/Ferrous Fum/FA [Kpn Tablet] 1 tab PO DAILY 06/17/16 [ History] Promethazine [Phenergan] 25 mg PO Q8HR PRN 06/17/16 [History] Thyroid,Pork [[place] Thyroid] 60 mg PO DAILY 06/17/16 [History] Venlafaxine HCl [Effexor Xr] 75 mg PO QAM 06/17/16 [History] Ergocalciferol (VITAMIN D2) [Vitamin D2] 50,000 unit PO MO 12/24/16 [History] Fluticasone Propionate Nasal [Flonase] 100 mcg NS DAILY 12/24/16 [History] Metolazone [Zaroxolyn] 5 mg PO BID 12/24/16 [History] Potassium Chloride [K-Tab ER] 20 meq PO BID PRN 12/24/16 [History] Sucralfate [Carafate] 1 gm PO BID 12/24/16 [History] Zoledronic Acid (Reclast) [Reclast 5 MG/100 ML] 5 mg IV AD 12/24/16 [History] Allergies losartan [From Cozaar] Allergy (Verified 12/25/16 07:22) Hives spironolactone [From Aldactone] Allergy (Verified 12/25/16 07:22) Hives Oxycodone [From OxyContin] Adverse Reaction (Verified 12/25/16 07:22) See Comments unresponsive Review of Systems All Systems: reviewed and no additional remarkable complaints except as stated Exam - Vital Signs Vital signs: Initial Vital Signs Temp Pulse Resp BP Pulse Ox 97.6 F 79 17 98/55 96 12/24/16 02:44 12/24/16 02:44 12/24/16 02:44 12/24/16 02:44 12/24/16 02:44 Vital Signs - Last 8 Hours Temp Pulse Resp BP Pulse Ox 12/26/16 08:00 91 15 109/69 96 12/26/16 04:23 98.7 F 80 18 125/71 97 Intake and Output 12/25/16 12/26/16 12/26/16 22:59 07:59 15:59 Intake Total 580 / 580 Output Total Balance 580 / 580 Intake: Oral 580 / 580 Output: Urine Catheter Other: Meal Breakfast Percent of Meal Consumed 75% Weight Patient Weight 12/27/16 00:59 Weight 84.5 kg - General Appearance General appearance: well-developed, well-nourished, appears started age EENT: mucous membranes moist Neck: no JVD Respiratory: clear Cardiology: no edema, regular rate, regular rhythm Gastrointestinal: normoactive bowel sounds, no tenderness Integumentary: warm and dry Neurologic: alert and oriented x3 Psychiatric: mood/affect appropriate, cooperative Results - Lab Results 12/26/16 06:15 12/26/16 06:15 Most recent lab results Calcium 8.7 mg/dL (8.6-10.8) 12/26/16 06:15 Magnesium 1.6 mg/dL (1.6-2.6) 12/26/16 06:15 Consult Discharge Plan - Plan Referrals: NO,PCP [Primary Care Provider] -
--- NOTE | 2016-12-26 13:26 | Internal Med Progress Note ---
Date of Encounter: 12/26/16 Time of Encounter: 10:00 - Assessment and plan (1) DVT prophylaxis Current Visit: Yes Status: Acute Assessment and plan: EPCD and heparin subcutaneous (2) Syncope Current Visit: Yes Status: Acute Assessment and plan: Patient had a syncope one week ago. Etiology is undetermined. Most likely due to dehydration caused by recent UTI. However, will obtain duplex carotid, echocardiogram, and cardiac monitoring to rule out cardio neurology problems. Echo and duplex carotid results came back, unremarkable. Qualifiers: Syncope type: vasovagal syncope Qualified Code(s): R55 - Syncope and collapse (3) Hypokalemia Current Visit: Yes Status: Acute Assessment and plan: Still low potassium but improved. We will continue potassium supplement. (4) Acute renal failure Current Visit: Yes Status: Acute Assessment and plan: Will continue follow-up renal function. Nephrology consult appreciated Qualifiers: Acute renal failure type: unspecified Qualified Code(s): N17.9 - Acute kidney failure, unspecified (5) Hematoma of right hip Current Visit: Yes Status: Acute Assessment and plan: Due to recently syncope and a fall. Closely monitoring H and H. Qualifiers: Encounter type: initial encounter Qualified Code(s): S70.01XA - Contusion of right hip, initial encounter (6) Pyelonephritis, acute Current Visit: Yes Status: Acute Assessment and plan: Continue zosyn treatment. Urine culture negative. Will obtain culture result in [facility]. (7) Ureteral stone Current Visit: Yes Status: Acute Assessment and plan: Urology on case, Did ureteral stent (8) Urinary tract infection Current Visit: Yes Status: Acute Assessment and plan: Plan as above Qualifiers: Urinary tract infection type: acute pyelonephritis Qualified Code(s): N10 - Acute pyelonephritis (9) Chronic back pain Current Visit: Yes Status: Chronic Assessment and plan: Continue morphine pump for chronic back pain. Follow-up with pain management as outpatient Qualifiers: Back pain location: low back pain Back pain laterality: unspecified Sciatica presence: without sciatica Qualified Code(s): M54.5 - Low back pain; G89.29 - Other chronic pain (10) Hypertension Current Visit: Yes Status: Chronic Assessment and plan: BP is not high. We will hold hypertension medications now because patient has syncope. Qualifiers: Hypertension type: essential hypertension Qualified Code(s): I10 - Essential (primary) hypertension - Time Spent With Patient 25 - 35 minutes - Subjective Interval history: Patient is a 56-year-old female admitted for UTI and ureter stone. Past medical history is significant for diabetes, hypertension, recent syncope, chronic back pain on morphine pump. Hx of bariatric surgery Patient was seen and examined. She had no fever. Had ureter stenting. Vital signs stable. White count is still high. Will switch Rocephin to Zosyn for broader coverage. Urine culture results negative, possibly due to previous antibiotic use in other facility. Will obtain culture results from [facility]. Renal function persistent abnormal. Nephrology consult saw pt, recommendations appreciated. - Constitutional Vitals: Temp Pulse Resp BP Pulse Ox 98.7 F 91 15 109/69 96 12/26/16 04:23 12/26/16 08:00 12/26/16 08:00 12/26/16 08:00 12/26/16 08:00 General appearance: Present: A&O X 3, no acute distress, answers questions appropriately - Head Head exam: Present: atraumatic, normocephalic - Eye Eye exam: Present: PERRL, conjuntiva pink, sclera anicteric Pupils: Present: PERRL - Neck Neck exam general surgery: Present: supple, trachea midline. Absent: lymphadenopathy - Respiratory Respiratory exam: Present: CTAB. Absent: accessory muscle use, rales, rhonchi, wheezes - Cardiovascular Cardiovascular exam: Present: RRR, +S1, +S2. Absent: diastolic murmur, gallop, rubs, systolic murmur - GI/Abdominal GI/Abdominal exam: Present: normal bowel sounds, soft, no peritoneal signs. Absent: distended, tenderness - Extremities Exam Extremities exam: Present: warm, radial pulses palpable and symetrical. Absent : calf tenderness, cyanotic, pedal edema - Neurological Exam Neurological exam: Present: CN II-XII intact, oriented X3, no focal deficits. Absent: pronater drift, facial droop, speech deficit - Skin Skin exam: Present: dry, intact Internal Medicine: Result - Labs CBC & Chem 7: 12/26/16 06:15 12/26/16 06:15 Labs: Short CBC 12/26/16 Range/Units 06:15 WBC 30.8 H* (4.3-11.1) K/mcL Hgb 9.9 L (11.5-15.4) g/dL Hct 28.0 L (35.3-44.9) % Plt Count 91 L (140-400) K/mcL Neutrophils # 28.3 H (1.6-8.9) K/mcL BMP 12/26/16 06:15 Sodium 133 L Potassium 3.2 L Chloride 97 L Carbon Dioxide 23 BUN 58 H Creatinine 2.32 H Glucose 147 H Calcium 8.7 - ABG Interpretation ABG results: PT/INR, D-dimer PT 14.5 Seconds (9.4-12.1) H 12/24/16 05:31 - VTE Documentation of Mechanical Device: Intermittent pneumatic compression device Consult Discharge Plan - Plan Referrals: NO,PCP [Primary Care Provider] -
[2016-12-26] MEDS: *HR* Heparin 5,000 UNIT/ML VIAL SQ SCH (17:48)
[2016-12-26] MEDS ORDERED: Piperacillin/Tazobactam 3.375 GM in D5% in Water (Mini-Bag+) 100 ML IVPB SCH (18:00)
[2016-12-26] MEDS ORDERED: Vancomycin 1,000 MG in D5% in Water 250 ML IVPB SCH (23:00)
[2016-12-26] MEDS: Cefepime HCl 1,000 MG in D5% in Water (Mini-Bag+) 100 ML IVPB SCH (23:08)
[2016-12-26 23:28] LABS: ABG Base Excess 0.8 mEq/L (-2.0 to 3.0); ABG HCO3 26.6 mEQ/L (21-27); ABG Oxygen Saturation 97 % (95-98); ABG PCO2 47 mmHg (35-45); ABG PH 7.36 pH Units (7.32-7.45); ABG PO2 90 mmHg (85-104)
[2016-12-26 23:29] LABS: Blood Gas FiO2 28 %
[2016-12-26] MEDS ORDERED: 0.9 % Sodium Chloride 500 ML IVC ONE (23:48)
[2016-12-27] MEDS ORDERED: Vancomycin 1,250 MG in D5% in Water 250 ML IVPB ONE (01:00)
[2016-12-27] MEDS: *HR* Heparin 5,000 UNIT/ML VIAL SQ SCH ×2 (05:30→17:21)
[2016-12-27 05:38] LABS: Eosinophils % 1.9 %; Hemoglobin 10.3 g/dL (11.5-15.4)
[2016-12-27 05:40] LABS: Basophils # 0.1 K/mcL (0.0-0.2); Basophils % 0.5 %; Eosinophils # 0.5 K/mcL (0.0-0.6); Hematocrit 30.3 % (35.3-44.9); Immature Granulocytes % 4.4 % (0-4); Immature Platelets 3.5 % (1.1-6.1); Lymphocytes # 1.7 K/mcL (0.6-4.6); Mean Corpuscular Hemoglobin 28.9 pg (28.0-33.3); Mean Corpuscular Volume 85.1 fL (83.0-100.0); Mean Platelet Volume 9.6 fL (9.4-12.4); Monocytes # 1.4 K/mcL (0.0-1.3); Monocytes % 5.8 %; Neutrophils # 19.5 K/mcL (1.6-8.9); Platelet Count 116 K/mcL (140-400); Red Blood Count 3.56 M/mcL (3.82-4.97); Red Cell Distribution Width 15.8 % (11.5-14.5); Segmented Neutrophils % 80.4 %
[2016-12-27 05:57] LABS: Potassium 3.7 mEq/L (3.5-4.5)
[2016-12-27] MEDS: Potassium Chloride Elixir 20 MEQ/15 ML UDC PO SCH (08:59)
[2016-12-27] MEDS: Prenatal Vit/FA 1 EACH TABLET PO SCH (08:59)
--- NOTE | 2016-12-27 09:39 | Nephrology Progress Note ---
Date of Encounter: 12/27/16 Time of Encounter: 09:37 - Assessment and Plan (1) Acute renal failure Current Visit: Yes Status: Acute Patient has acute kidney injury in the setting of a right ureteral calculus with hydronephrosis and probably a component of volume depletion. She is status post right ureteral stent placement on December 24. Diuretics were placed on hold yesterday. Serum creatinine is slightly improved today. We will continue to follow her renal function. I would continue to leave her off the diuretics currently. She is on vancomycin. It is potentially nephrotoxic. We need to make sure that her levels are being monitored. Qualifiers: Acute renal failure type: unspecified Qualified Code(s): N17.9 - Acute kidney failure, unspecified (2) Hematoma of right hip Current Visit: Yes Status: Acute Qualifiers: Encounter type: subsequent encounter Qualified Code(s): S70.01XD - Contusion of right hip, subsequent encounter (3) Ureteral stone Current Visit: Yes Status: Acute (4) Urinary tract infection Current Visit: Yes Status: Acute Qualifiers: Urinary tract infection type: acute pyelonephritis Qualified Code(s): N10 - Acute pyelonephritis Subjective Interval history: The patient is having some mild clonus. Otherwise she says she is doing well. She denies any pain. Her diuretics were discontinued yesterday. Renal function is slightly better today. White count is also improving. Urine output is excellent. Objective - Vital Signs Vital signs: Vital Signs Temp Pulse Resp BP Pulse Ox 12/27/16 08:03 97.9 F 79 16 109/64 94 L 12/27/16 05:09 98.3 F 69 15 123/63 96 12/26/16 21:45 97.5 F L 86 15 142/81 96 12/26/16 16:00 98.1 F 69 17 128/64 98 Intake and Output 12/26/16 12/27/16 12/27/16 23:59 07:59 15:59 Output Total 1600 / 1600 1650 / 1650 Balance -1600 / -1600 -1650 / -1650 Output: Catheter 1600 / 1600 1650 / 1650 - General Appearance Exam: Patient is alert and oriented. She is in no acute distress. Lungs essentially clear to auscultation. Heart regular rate and rhythm. Abdomen is benign. There is no peripheral edema. Mason catheter is in place. - Lab 12/27/16 05:29 12/27/16 05:29 Most recent lab results ABG pH 7.36 pH Units (7.32-7.45) 12/26/16 23:15 ABG pCO2 47 mmHg (35-45) H 12/26/16 23:15 ABG pO2 90 mmHg (85-104) 12/26/16 23:15 ABG HCO3 26.6 mEQ/L (21-27) 12/26/16 23:15 ABG O2 Saturation 97 % (95-98) 12/26/16 23:15 Calcium 9.0 mg/dL (8.6-10.8) 12/27/16 05:29 Magnesium 1.6 mg/dL (1.6-2.6) 12/26/16 06:15 - VTE Documentation of Mechanical Device: Intermittent pneumatic compression device Consult Discharge Plan - Plan Referrals: NO,PCP [Primary Care Provider] -
--- NOTE | 2016-12-27 12:14 | Urology Progress Note ---
Date of Encounter: 12/27/16 Time of Encounter: 12:11 - Assessment and Plan (1) Ureteral stone Current Visit: Yes Status: Acute Assessment and plan: status post right ureteral stent. Stent is in good position. Will monitor. (2) Acute renal failure Current Visit: Yes Status: Acute Assessment and plan: Appreciate renal input. Qualifiers: Acute renal failure type: unspecified Qualified Code(s): N17.9 - Acute kidney failure, unspecified (3) Urinary tract infection Current Visit: Yes Status: Acute Assessment and plan: Continue antibiotics and consider tapering down. I palpated her device and I don't note any erythema or pain around her spinal stimulator. Qualifiers: Urinary tract infection type: acute pyelonephritis Qualified Code(s): N10 - Acute pyelonephritis Progress Note Narrative: Doing well today. Urine is draining clear. WBC is slightly improved. KUB reviewed yesterday and shows that the stent is still in position. Urine culture obtained from [facility]. She had + blood cultures. E. coli grew out. It was resistant to augmentin and bactrim. It was sensitive to all other antibiotics. Objective Initial Vital Signs Temp Pulse Resp BP Pulse Ox 97.6 F 79 17 98/55 96 12/24/16 02:44 12/24/16 02:44 12/24/16 02:44 12/24/16 02:44 12/24/16 02:44 - General physical appearance Present: well developed, well nourished, no distress - Respiratory Present: normal expansion - Abdomen Present: soft - Genitourinary Urine Appearance: Present: Clear - Labs 12/27/16 05:29 12/27/16 05:29 Diabetes panel 12/27/16 Range/Units 05:29 Sodium 133 L (136-145) mEq/L Potassium 3.7 (3.5-4.5) mEq/L Chloride 100 (98-109) mEq/L Carbon Dioxide 24 (19-29) mEq/L BUN 54 H (7-20) mg/dL Creatinine 2.10 H (0.57-1.11) mg/dL Glucose 131 H (70-99) mg/dL Calcium 9.0 (8.6-10.8) mg/dL Calcium panel 12/27/16 Range/Units 05:29 Calcium 9.0 (8.6-10.8) mg/dL Pituitary panel 12/27/16 Range/Units 05:29 Sodium 133 L (136-145) mEq/L Potassium 3.7 (3.5-4.5) mEq/L Chloride 100 (98-109) mEq/L Carbon Dioxide 24 (19-29) mEq/L BUN 54 H (7-20) mg/dL Creatinine 2.10 H (0.57-1.11) mg/dL Glucose 131 H (70-99) mg/dL Calcium 9.0 (8.6-10.8) mg/dL Adrenal panel 12/27/16 Range/Units 05:29 Sodium 133 L (136-145) mEq/L Potassium 3.7 (3.5-4.5) mEq/L Chloride 100 (98-109) mEq/L Carbon Dioxide 24 (19-29) mEq/L BUN 54 H (7-20) mg/dL Creatinine 2.10 H (0.57-1.11) mg/dL Glucose 131 H (70-99) mg/dL Calcium 9.0 (8.6-10.8) mg/dL - VTE Documentation of Mechanical Device: Intermittent pneumatic compression device Consult Discharge Plan - Plan Referrals: NO,PCP [Primary Care Provider] -
[2016-12-27] MEDS: Cefepime HCl 1,000 MG in D5% in Water (Mini-Bag+) 100 ML IVPB SCH (13:14)
--- NOTE | 2016-12-27 15:34 | Infectious Disease Consult ---
Date of Encounter: 12/27/16 Time of Encounter: 15:29 Assessment and Plan (1) Leukocytosis Status: Acute Assessment and plan: WBC 25.7 on admission, up to 30.3 yesterday. Improved to 24.3 today. Bandemia resolved. Likely secondary to UTI and bacteremia. Continue to monitor daily. Qualifiers: Leukocytosis type: unspecified Qualified Code(s): D72.829 - Elevated white blood cell count, unspecified (2) Bacteremia Status: Acute Assessment and plan: Causative organism E. coli, crouch-sensitive, per blood cultures drawn 12/24/16 at [facility]. Blood cultures positive 2/2 sets. Repeat blood culture drawn 12/24/16 at [facility] is NGTD. Source likely UTI. Repeat an additional set of blood cultures x 2 sets now. Low index of suspicion for IE. No endocarditis stigmata noted on exam. Patient treated with Rocephin initially and switched to Cefepime by the primary team. Discontinue Cefepime and start Rocephin 2 grams IV daily. Duration of treatment depends on the clinical picture, but likely 14 days from the first set of negative blood cultures. Will likely be able to switch to oral antibiotics when ready for discharge. (3) Urinary tract infection Status: Acute Assessment and plan: Causative organism E. coli per urine culture completed at [facility]. Crouch-sensitive. Repeat urine culture 12/25/16 is negative. Continue antibiotics as above. Qualifiers: Urinary tract infection type: acute pyelonephritis Qualified Code(s): N10 - Acute pyelonephritis (4) Acute renal failure Status: Acute Assessment and plan: Likely multifactorial --> hydronephrosis + sepsis + dehydration. Improved. Nephrology consulted and following. Avoid nephrotoxins and dose-adjust medications based on creatinine clearance. Qualifiers: Acute renal failure type: unspecified Qualified Code(s): N17.9 - Acute kidney failure, unspecified (5) Ureteral stone Status: Acute Assessment and plan: CT of the abdomen and pelvis showed 7mm calculus in the right ureter with mild hydroureter and moderate hydronephrosis. Urology consulted and following. Status post cystoscopy with stent placement 12/25/[address] Arteaga. Plan for indefinite stone treatment once her infection resolves. Further management per the urology team. (6) Acute encephalopathy Status: Acute Assessment and plan: Etiology likely multifactorial --> sepsis + over-medication with morphine via subcutaneous pain pump. CT of the head negative. According to the nursing staff, the patient has been bolusing herself. Recommend removing the patient's bolus device from the bedside and further pain management of the patient's back pain should be outlined by the primary team. (7) Syncope Status: Acute Assessment and plan: Carotid dopplers and ECHO results noted. Consider over-use of her morphine pump as potential cause as well. Management per the primary team. Qualifiers: Syncope type: vasovagal syncope Qualified Code(s): R55 - Syncope and collapse (8) Hematoma of right hip Status: Acute Assessment and plan: Secondary to fall. Trend H & H. Management per the primary team. Qualifiers: Encounter type: subsequent encounter Qualified Code(s): S70.01XD - Contusion of right hip, subsequent encounter (9) Hypokalemia Status: Acute (10) Hyponatremia Status: Resolved (11) Chronic back pain Status: Chronic Qualifiers: Back pain location: low back pain Back pain laterality: unspecified Sciatica presence: without sciatica Qualified Code(s): M54.5 - Low back pain; G89.29 - Other chronic pain (12) Hypertension Status: Chronic Qualifiers: Hypertension type: essential hypertension Qualified Code(s): I10 - Essential (primary) hypertension (13) Thrombocytopenia Status: Acute Assessment and plan: Likely secondary to sepsis. Continue to trend. Infectious Disease HPI - Data of Consult Patient: new to practice Consult date: 12/27/16 Requesting Physician: Guy Lovell MD Primary Care Provider: PCP NO - Consult Narrative Reason for consult: E. coli bacteremia History of present illness: Ms. Yeager is a 56 year old female with a past medical history of diabetes, GERD , hypertension, depression, and chronic back pain with a subcutaneous morphine pain pump. The patient was admitted to the hospital and 2017 for UTI and right ureteral stone. We are consulted December 27, 2016 for further evaluation and treatment recommendations regarding Escherichia coli bacteremia. Briefly, the patient is a 48-year-old female with past medical history as stated above. On the day of admission, the patient presented to [facility] emergency Department with complaints of vision, syncope, and fall. The patient is somewhat of a poor historian, therefore, most of the information is obtained from the medical record. Upon presentation to [facility], the patient had leukocytosis in an acute kidney injury. Urinalysis was positive for leukocyte esterase, nitrites, too numerous to count white blood cells, and a large amount of blood. Her anger out Escherichia coli. CT of the head was negative. CT the abdomen and pelvis showed a hematoma overlying the right hip at the level of the trochanter, as well as a 7 mm calculus in the right ureter with mild hydroureter and moderate hydronephrosis. Chest x-ray was completed that was negative. Blood cultures were obtained 2 sets that are also growing out Escherichia coli 2 out of 2 sets. The patient was subsequent transferred here to a DNR for urology consult. She underwent a cystoscopy with stent placement on December [address] Arteaga. She continues to have leukocytosis. Her white blood cell count is improved today from yesterday down to 24.3 thousand with neutrophilic predominance. She did have some bandemia which has resolved. A repeat KUB was done yesterday check stent placement which showed satisfactory stent placement. Repeat urine culture she is negative. Blood culture obtained upon admission here is no growth to date 1 out of 1 sets. Initially, the patient was treated with Rocephin, but this has been switched to IV cefepime by the primary team. We've been asked to evaluate and make further recommendations. Today, the patient is somewhat drowsy and difficult to arouse. She is somewhat of a poor historian. She denies any fevers or rigors at home, but does refer some chills. She reports chronic headache and neck pain. She denies any congestion, earache, or sore throat. She denies chest pain, shortness of breath , or cough. She denies abdominal pain, but does report some nausea with emesis at home. She also complains of some right flank pain. She denies any urinary complaints, but the medical record reflects that she reported dysuria upon admission. She denies any pain in her extremities. She does report chronic back pain. 10 point review of systems complete and is negative except as mentioned above. 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) Current living situation: Home - Independent Activity Level: Independent ambulation Recent Out of Country Travel Within the Last 8 Weeks: No Exposure or Possible Exposure to Illness During Travel: No - Family History Mother Hx Family Genitourinary Disorders: No (No stones.) Infectious Disease-CN:Meds Alendronate Sodium [Fosamax] 70 mg PO QWEEK 06/17/16 [History] Bethanechol Chloride [Urecholine] 25 mg PO TID 06/17/16 [History] Furosemide [Lasix] 40 mg PO DAILY 06/17/16 [History] Gabapentin [Neurontin] 1,200 mg PO HS 06/17/16 [History] Gabapentin [Neurontin] 600 mg PO BID 06/17/16 [History] Omeprazole [PriLOSEC] 40 mg PO DAILY 06/17/16 [History] Vit#98/Ferrous Fum/FA [Kpn Tablet] 1 tab PO DAILY 06/17/16 [ History] Promethazine [Phenergan] 25 mg PO Q8HR PRN 06/17/16 [History] Thyroid,Pork [Orange Thyroid] 60 mg PO DAILY 06/17/16 [History] Venlafaxine HCl [Effexor Xr] 75 mg PO QAM 06/17/16 [History] Ergocalciferol (VITAMIN D2) [Vitamin D2] 50,000 unit PO MO 12/24/16 [History] Fluticasone Propionate Nasal [Flonase] 100 mcg NS DAILY 12/24/16 [History] Metolazone [Zaroxolyn] 5 mg PO BID 12/24/16 [History] Potassium Chloride [K-Tab ER] 20 meq PO BID PRN 12/24/16 [History] Sucralfate [Carafate] 1 gm PO BID 12/24/16 [History] Zoledronic Acid (Reclast) [Reclast 5 MG/100 ML] 5 mg IV AD 12/24/16 [History] Allergies losartan [From Cozaar] Allergy (Verified 12/25/16 07:22) Hives spironolactone [From Aldactone] Allergy (Verified 12/25/16 07:22) Hives Oxycodone [From OxyContin] Adverse Reaction (Verified 12/25/16 07:22) See Comments unresponsive All systems: reviewed and no additional remarkable complaints except as stated Exam - Constitutional Vitals: Temp Pulse Resp BP Pulse Ox 97.8 F 76 18 118/65 97 12/27/16 12:36 12/27/16 12:36 12/27/16 12:36 12/27/16 12:36 12/27/16 12:36 General appearance: average body habitus, cooperative, no acute distress - Head Head exam: Present: atraumatic, normal inspection, normocephalic Additional comments: Scabbed lesion noted to the right eyebrow. No erythema or drainage noted. - Eye Eye exam: Present: EOMI, normal appearance, PERRL Pupils: Present: normal accommodation Additional comments: No subconjunctival hemorrhage noted. - ENT ENT exam: Present: mucous membranes moist - Neck Neck exam: Present: normal inspection - Respiratory Respiratory exam: Present: CTAB. Absent: rales, respiratory distress, rhonchi, wheezes - Cardiovascular Cardiovascular exam: Present: RRR, +S1, +S2 - GI/Abdominal GI/Abdominal exam: Present: normal bowel sounds, soft. Absent: distended, tenderness Additional comments: Right CVA tenderness noted. Mason catheter patent draining clear yellow urine. - Extremities Exam Extremities exam: Present: normal inspection. Absent: joint swelling, pedal edema, tenderness - Back Exam Back exam: Present: CVA tenderness (R), normal inspection. Absent: CVA tenderness (L) - Neurological Exam Neurological exam: Present: altered (Drowsy, difficult to awaken, difficult to keep awake during exam.), oriented X3, no focal deficits, strengths equal and symetr throughout (Mile RUE weakness noted.). Absent: facial droop, speech deficit - Psychiatric Psychiatric exam: Present: normal affect, normal mood - Skin Skin exam: Present: dry, intact, normal color, warm Additional comments: No endocarditis stigmata noted. Infectious Disease CN: Results - Labs CBC & Chem 7: 12/27/16 05:29 12/27/16 05:29 Cultures: Cultures 12/25/16 04:05 Urine Culture - Final Urine,Clean Catch No growth. 12/24/16 05:31 Blood Culture - Preliminary Peripheral Venipuncture No growth. - VTE Documentation of Mechanical Device: Intermittent pneumatic compression device Consult Discharge Plan - Plan Referrals: NO,PCP [Primary Care Provider] -
[2016-12-27 17:37] LABS: Bilirubin,Urine Negative (Negative); Blood,Urine Moderate (Negative); Clarity,Urine Cloudy (Clear); Color,Urine Yellow (Yellow); Glucose,Urine (UA) Normal (Normal); Ketones,Urine Negative (Negative); Leukocyte Esterase,Urine Small (Negative); Nitrite,Urine Negative (Negative); Protein,Urine 30 mg/dL (Neg-Trace); Urobilinogen,Urine Normal (Normal)
[2016-12-27 17:39] LABS: Bacteria,Urine None Seen per hpf (None-Few); Hyaline Casts,Urine None Seen per lpf (None-Few); Squamous Epithelial Cell,Urine Many per lpf (None-Few)
--- NOTE | 2016-12-27 18:48 | Internal Med Progress Note ---
Date of Encounter: 12/27/16 Time of Encounter: 11:00 - Assessment and plan (1) DVT prophylaxis Current Visit: Yes Status: Acute Assessment and plan: EPCD and heparin subcutaneous (2) Syncope Current Visit: Yes Status: Acute Assessment and plan: Patient had a syncope one week ago. Etiology is undetermined. Most likely due to dehydration caused by recent UTI. However, will obtain duplex carotid, echocardiogram, and cardiac monitoring to rule out cardio neurology problems. Echo and duplex carotid results came back, unremarkable. 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 Qualifiers: Syncope type: vasovagal syncope Qualified Code(s): R55 - Syncope and collapse (3) Hypokalemia Current Visit: Yes Status: Acute Assessment and plan: Improved. We will continue potassium supplement. (4) Acute renal failure Current Visit: Yes Status: Acute Assessment and plan: Will continue follow-up renal function. Nephrology consult appreciated Qualifiers: Acute renal failure type: unspecified Qualified Code(s): N17.9 - Acute kidney failure, unspecified (5) Hematoma of right hip Current Visit: Yes Status: Acute Assessment and plan: Due to recently syncope and a fall. Stable H and H. Qualifiers: Encounter type: subsequent encounter Qualified Code(s): S70.01XD - Contusion of right hip, subsequent encounter (6) Pyelonephritis, acute Current Visit: Yes Status: Acute Assessment and plan: Continue rocephine treatment. Culture result in [facility] shows both blood and urine positive to E Coli, sensitive to rocephine. (7) Ureteral stone Current Visit: Yes Status: Acute Assessment and plan: Urology on case, Did ureteral stent (8) Urinary tract infection Current Visit: Yes Status: Acute Assessment and plan: Plan as above Qualifiers: Urinary tract infection type: acute pyelonephritis Qualified Code(s): N10 - Acute pyelonephritis (9) Chronic back pain Current Visit: Yes Status: Chronic Assessment and plan: Pt has morphine pump for chronic back pain, implanted by her pain specialist. Suspect account for her syncope or dystonia. May hold in hospital. Follow-up with pain management as outpatient Qualifiers: Back pain location: low back pain Back pain laterality: unspecified Sciatica presence: without sciatica Qualified Code(s): M54.5 - Low back pain; G89.29 - Other chronic pain (10) Hypertension Current Visit: Yes Status: Chronic Assessment and plan: BP is not high. We will hold hypertension medications now because patient has syncope. Qualifiers: Hypertension type: essential hypertension Qualified Code(s): I10 - Essential (primary) hypertension (11) Dystonia Current Visit: Yes Status: Acute Assessment and plan: Both shoulder dystonia noticed, etiology undetermined. Happened in hospital (pt denies she has such symptoms previously) 1. Related to morphine pump use? will hold morphine pump. 2. Will obtain CT C spine (r/o abscess b/o bacteremia). 3. Pt has bariatric surgery, will check Vit B12, Vit D, Folic acid, and iron level. 4. Related to infection? Continue treatment of UTI with abx. 5. Closely monitor pt. (12) Bacteremia Current Visit: Yes Status: Acute Assessment and plan: Continue abx treatment, repeat blood cx. ID consult appreciated. - Time Spent With Patient 25 - 35 minutes - Subjective Interval history: Patient is a 56-year-old female admitted for UTI and ureter stone. Past medical history is significant for diabetes, hypertension, recent syncope, chronic back pain on morphine pump. Hx of bariatric surgery Patient was seen and examined. She had no fever. Had ureter stenting done. Vital signs stable. White count is still high. Culture results from [facility] shows both blood and urine culture positive with E Coli, sensitive to rocephine. ID consult was appreciated and recommend to change back to rocephine, will followe the recommendation. Pt was found having dystonia on both shoulder muscles when stretching out her arms. Pt denies arm/hand numbness/tingling. Will order C spine CT. - Constitutional Vitals: Temp Pulse Resp BP Pulse Ox 98.0 F 71 18 119/71 95 12/27/16 15:51 12/27/16 15:51 12/27/16 15:51 12/27/16 15:51 12/27/16 15:51 General appearance: Present: A&O X 3, no acute distress, answers questions appropriately - Head Head exam: Present: atraumatic, normocephalic - Eye Eye exam: Present: PERRL, conjuntiva pink, sclera anicteric Pupils: Present: PERRL - Neck Neck exam general surgery: Present: supple, trachea midline. Absent: lymphadenopathy - Respiratory Respiratory exam: Present: CTAB. Absent: accessory muscle use, rales, rhonchi, wheezes - Cardiovascular Cardiovascular exam: Present: RRR, +S1, +S2. Absent: diastolic murmur, gallop, rubs, systolic murmur - GI/Abdominal GI/Abdominal exam: Present: normal bowel sounds, soft, no peritoneal signs. Absent: distended, tenderness - Extremities Exam Extremities exam: Present: warm, radial pulses palpable and symetrical. Absent : calf tenderness, cyanotic, pedal edema - Neurological Exam Neurological exam: Present: CN II-XII intact, oriented X3, no focal deficits. Absent: pronater drift, facial droop, speech deficit - Skin Skin exam: Present: dry, intact Internal Medicine: Result - Labs CBC & Chem 7: 12/27/16 05:29 12/27/16 05:29 Labs: Short CBC 12/27/16 Range/Units 05:29 WBC 24.3 H (4.3-11.1) K/mcL Hgb 10.3 L (11.5-15.4) g/dL Hct 30.3 L (35.3-44.9) % Plt Count 116 L (140-400) K/mcL Neutrophils # 19.5 H (1.6-8.9) K/mcL BMP 12/27/16 05:29 Sodium 133 L Potassium 3.7 Chloride 100 Carbon Dioxide 24 BUN 54 H Creatinine 2.10 H Glucose 131 H Calcium 9.0 Urine 12/27/16 Range/Units 16:45 Urine Color Yellow (Yellow) Urine Clarity Cloudy A (Clear) Urine pH 6.0 (5.0-8.0) pH Units Ur Specific [place] 1.010 (1.010-1.025) Urine Protein 30 H (Neg-Trace) mg/dL Urine Glucose (UA) Normal (Normal) mg/dL - ABG Interpretation ABG results: ABG ABG pH 7.36 pH Units (7.32-7.45) 12/26/16 23:15 ABG pCO2 47 mmHg (35-45) H 12/26/16 23:15 ABG pO2 90 mmHg (85-104) 12/26/16 23:15 ABG O2 Saturation 97 % (95-98) 12/26/16 23:15 PT/INR, D-dimer PT 14.5 Seconds (9.4-12.1) H 12/24/16 05:31 - Impressions Impressions Head CT 12/27/16 00:05 IMPRESSION: No acute intracranial abnormality. D/ / Nawaf Jurado MD / Nawaf Jurado MD Interpreting Provider: Nawaf Jurado MD - VTE Documentation of Mechanical Device: Intermittent pneumatic compression device Consult Discharge Plan - Plan Referrals: NO,PCP [Primary Care Provider] -
[2016-12-28] MEDS: *HR* Heparin 5,000 UNIT/ML VIAL SQ SCH ×2 (05:10→17:27)
[2016-12-28 06:45] LABS: Hematocrit 27.8 % (35.3-44.9); Hemoglobin 9.7 g/dL (11.5-15.4); Mean Corpuscular HGB Conc 34.9 g/dL (31.6-35.5); Mean Platelet Volume 9.8 fL (9.4-12.4); Platelet Count 156 K/mcL (140-400); Red Blood Count 3.35 M/mcL (3.82-4.97); Red Cell Distribution Width 15.2 % (11.5-14.5)
[2016-12-28 07:15] LABS: Magnesium 1.7 mg/dL (1.6-2.6); Potassium 4.1 mEq/L (3.5-4.5)
--- NOTE | 2016-12-28 07:16 | Urology Progress Note ---
Date of Encounter: 12/28/16 Time of Encounter: 07:14 - Assessment and Plan (1) Ureteral stone Current Visit: Yes Status: Acute Assessment and plan: POD #4 s/p right ureteral stent. Will treat stone once infection resolves. (2) Acute renal failure Current Visit: Yes Status: Acute Assessment and plan: Per nephrology. Appreciate their input. Qualifiers: Acute renal failure type: unspecified Qualified Code(s): N17.9 - Acute kidney failure, unspecified (3) Urinary tract infection Current Visit: Yes Status: Acute Assessment and plan: Per ID. Appreciate their input. Qualifiers: Urinary tract infection type: acute pyelonephritis Qualified Code(s): N10 - Acute pyelonephritis Progress Note Narrative: POD #4 s/p right ureteral stent placement. Doing fairly well today. WBC improved to 20. UOP good. No fevers. Objective Initial Vital Signs Temp Pulse Resp BP Pulse Ox 97.6 F 79 17 98/55 96 12/24/16 02:44 12/24/16 02:44 12/24/16 02:44 12/24/16 02:44 12/24/16 02:44 - General physical appearance Present: well developed, well nourished, no distress - Respiratory Present: normal respiratory effort - Abdomen Present: soft - Genitourinary Urine Appearance: Present: Clear - Labs 12/28/16 05:44 12/27/16 05:29 - VTE Documentation of Mechanical Device: Intermittent pneumatic compression device Consult Discharge Plan - Plan Referrals: NO,PCP [Primary Care Provider] -
--- NOTE | 2016-12-28 08:08 | Nephrology Progress Note ---
Date of Encounter: 12/28/16 Time of Encounter: 08:06 - Assessment and Plan (1) Acute renal failure Current Visit: Yes Status: Acute Patient has acute kidney injury in the setting of a right ureteral calculus with hydronephrosis and probably a component of volume depletion. She is status post right ureteral stent placement on December 24. Renal function continues to improve. I would leave her off the diuretics currently. Qualifiers: Acute renal failure type: unspecified Qualified Code(s): N17.9 - Acute kidney failure, unspecified (2) Hematoma of right hip Current Visit: Yes Status: Acute Qualifiers: Encounter type: subsequent encounter Qualified Code(s): S70.01XD - Contusion of right hip, subsequent encounter (3) Ureteral stone Current Visit: Yes Status: Acute (4) Urinary tract infection Current Visit: Yes Status: Acute Qualifiers: Urinary tract infection type: acute pyelonephritis Qualified Code(s): N10 - Acute pyelonephritis Subjective Interval history: Patient says she feels tired. Otherwise she has no complaints. Her renal function continues to improve as does her white blood cell count. Urine output remains excellent. Objective - Vital Signs Vital signs: Vital Signs Temp Pulse Resp BP Pulse Ox 12/28/16 07:35 98.3 F 68 18 113/53 93 L 12/28/16 05:14 98.5 F 71 12 120/69 96 12/28/16 00:06 76 14 129/70 97 12/27/16 21:09 98.0 F 69 14 136/68 92 L 12/27/16 15:51 98.0 F 71 18 119/71 95 12/27/16 12:36 97.8 F 76 18 118/65 97 Intake and Output 12/27/16 12/28/16 12/28/16 23:59 07:59 15:59 Intake Total 480 / 480 0 / 0 Output Total 1600 / 1600 3800 / 3800 Balance -1120 / -1120 -3800 / -3800 Intake: Oral 480 / 480 0 / 0 Output: Urine 3800 / 3800 Catheter 1600 / 1600 Other: Meal Dinner Percent of Meal Consumed 50% # Voids 0 0 Weight 84.5 kg Patient Weight 12/28/16 23:59 Weight 84.5 kg - General Appearance Exam: Patient is alert and oriented. She is in no acute distress. Lungs clear to auscultation. Heart regular rhythm. Abdomen is benign. There is no peripheral edema. - Lab 12/28/16 05:44 12/28/16 05:44 Most recent lab results ABG pH 7.36 pH Units (7.32-7.45) 12/26/16 23:15 ABG pCO2 47 mmHg (35-45) H 12/26/16 23:15 ABG pO2 90 mmHg (85-104) 12/26/16 23:15 ABG HCO3 26.6 mEQ/L (21-27) 12/26/16 23:15 ABG O2 Saturation 97 % (95-98) 12/26/16 23:15 Calcium 9.0 mg/dL (8.6-10.8) 12/28/16 05:44 Magnesium 1.7 mg/dL (1.6-2.6) 12/28/16 05:44 - VTE Documentation of Mechanical Device: Intermittent pneumatic compression device Consult Discharge Plan - Plan Referrals: NO,PCP [Primary Care Provider] -
[2016-12-28 08:18] LABS: Lymphocytes # 1.6 K/mcL (0.6-4.6); Monocytes # 0.8 K/mcL (0.0-1.3); Neutrophils # 17.8 K/mcL (1.6-8.9); Platelet Estimate Normal (Normal)
--- NOTE | 2016-12-28 10:50 | Infectious Disease Progress No ---
Date of Encounter: 12/28/16 Time of Encounter: 09:30 - Assessment and Plan (1) Leukocytosis Current Visit: Yes Status: Acute WBC 25.7 on admission. Improved to 20 today. Bandemia resolved. Likely secondary to UTI and bacteremia. Continue to monitor daily. Qualifiers: Leukocytosis type: unspecified Qualified Code(s): D72.829 - Elevated white blood cell count, unspecified (2) Bacteremia Current Visit: Yes Status: Acute Causative organism E. coli, crouch-sensitive, per blood cultures drawn 12/24/16 at [facility]. Blood cultures positive 2/2 sets. Repeat blood culture drawn 12/24/16 at [facility] is NGTD. Additional repeat blood cultures drawn this morning are pending x 2 sets. Source likely UTI. Low index of suspicion for IE. No endocarditis stigmata noted on exam. Continue Rocephin 2 grams IV daily. Duration of treatment depends on the clinical picture, but likely 14 days from the first set of negative blood cultures. Will likely be able to switch to oral antibiotics when ready for discharge. (3) Urinary tract infection Current Visit: Yes Status: Acute Causative organism E. coli per urine culture completed at [facility]. Crouch-sensitive. Repeat urine culture 12/25/16 is negative. Continue antibiotics as above. Qualifiers: Urinary tract infection type: acute pyelonephritis Qualified Code(s): N10 - Acute pyelonephritis (4) Acute renal failure Current Visit: Yes Status: Acute Likely multifactorial --> hydronephrosis + sepsis + dehydration. Improved. Nephrology consulted and following. Avoid nephrotoxins and dose-adjust medications based on creatinine clearance. Qualifiers: Acute renal failure type: unspecified Qualified Code(s): N17.9 - Acute kidney failure, unspecified (5) Ureteral stone Current Visit: Yes Status: Acute CT of the abdomen and pelvis showed 7mm calculus in the right ureter with mild hydroureter and moderate hydronephrosis. Urology consulted and following. Status post cystoscopy with stent placement 12/25/[address] Arteaga. Plan for indefinite stone treatment once her infection resolves. Further management per the urology team. (6) Acute encephalopathy Current Visit: Yes Status: Acute Etiology likely multifactorial --> sepsis + over-medication with morphine via subcutaneous pain pump. CT of the head negative. According to the nursing staff, the patient has been bolusing herself. Recommend removing the patient's bolus device from the bedside and further pain management of the patient's back pain should be outlined by the primary team. (7) Syncope Current Visit: Yes Status: Acute Carotid dopplers and ECHO results noted. Consider over-use of her morphine pump as potential cause as well. Management per the primary team. Qualifiers: Syncope type: vasovagal syncope Qualified Code(s): R55 - Syncope and collapse (8) Hematoma of right hip Current Visit: Yes Status: Acute Secondary to fall. Trend H & H. Management per the primary team. Qualifiers: Encounter type: subsequent encounter Qualified Code(s): S70.01XD - Contusion of right hip, subsequent encounter (9) Hypokalemia Current Visit: Yes Status: Acute (10) Hyponatremia Current Visit: Yes Status: Resolved (11) Chronic back pain Current Visit: Yes Status: Chronic Qualifiers: Back pain location: low back pain Back pain laterality: unspecified Sciatica presence: without sciatica Qualified Code(s): M54.5 - Low back pain; G89.29 - Other chronic pain (12) Hypertension Current Visit: Yes Status: Chronic Qualifiers: Hypertension type: essential hypertension Qualified Code(s): I10 - Essential (primary) hypertension (13) Thrombocytopenia Current Visit: Yes Status: Resolved Likely secondary to sepsis. Continue to trend. - Subjective Interval history: Patient seen and examined with nurse and the patient's at the bedside. No acute events noted overnight. Patient states she feels better this morning. Denies fevers or chills. Denies chest pain, shortness of breath, or cough. Denies nausea, vomiting, or diarrhea. Denies abdominal pain. Complains of chronic back and neck pain. Denies oral thrush or skin lesions. Mason catheter remains in place. Infect Dis PN-Objective Data - Labs CBC & Chem 7: 12/28/16 05:44 12/28/16 05:44 Labs: Laboratory Results - last 24 hr 12/27/16 12/28/16 12/28/16 16:45 05:44 05:44 WBC 20.2 H RBC 3.35 L Hgb 9.7 L Hct 27.8 L MCV 83.0 MCH 29.0 MCHC 34.9 RDW 15.2 H Plt Count 156 MPV 9.8 Seg Neutrophils % 86.0 Band Neutrophils % 2.0 Lymphocytes % 8.0 Monocytes % 4.0 Neutrophils # 17.8 H Lymphocytes # 1.6 Monocytes # 0.8 Platelet Estimate Normal Sodium Potassium Chloride Carbon Dioxide BUN Creatinine Est GFR ( Amer) Est GFR (Non-Af Amer) BUN/Creatinine Ratio Glucose Calculated Osmolality Calcium Magnesium Urine Color Yellow Urine Clarity Cloudy A Urine pH 6.0 Ur Specific [place] 1.010 Urine Protein 30 H Urine Glucose (UA) Normal Urine Ketones Negative Urine Blood Moderate H Urine Nitrite Negative Urine Bilirubin Negative Urine Urobilinogen Normal Ur Leukocyte Esterase Small H Urine Microscopic RBC 5-15 H Urine Microscopic WBC 5-15 H Ur Squamous Epith Cells Many H Urine Bacteria None Seen Hyaline Casts None Seen Random Vancomycin 7.3 12/28/16 05:44 WBC RBC Hgb Hct MCV MCH MCHC RDW Plt Count MPV Seg Neutrophils % Band Neutrophils % Lymphocytes % Monocytes % Neutrophils # Lymphocytes # Monocytes # Platelet Estimate Sodium 135 L Potassium 4.1 Chloride 96 L Carbon Dioxide 26 BUN 45 H Creatinine 1.68 H Est GFR ( Amer) 38 L Est GFR (Non-Af Amer) 31 L BUN/Creatinine Ratio 27 H Glucose 141 H Calculated Osmolality 294 Calcium 9.0 Magnesium 1.7 Urine Color Urine Clarity Urine pH Ur Specific [place] Urine Protein Urine Glucose (UA) Urine Ketones Urine Blood Urine Nitrite Urine Bilirubin Urine Urobilinogen Ur Leukocyte Esterase Urine Microscopic RBC Urine Microscopic WBC Ur Squamous Epith Cells Urine Bacteria Hyaline Casts Random Vancomycin Cultures: Cultures 12/25/16 04:05 Urine Culture - Final Urine,Clean Catch No growth. 12/24/16 05:31 Blood Culture - Preliminary Peripheral Venipuncture No growth. Serology 12/27/16 Range/Units 16:45 Urine Color Yellow (Yellow) Urine Clarity Cloudy A (Clear) Urine pH 6.0 (5.0-8.0) pH Units Ur Specific [place] 1.010 (1.010-1.025) Urine Protein 30 H (Neg-Trace) mg/dL Urine Glucose (UA) Normal (Normal) mg/dL Urine Ketones Negative (Negative) mg/dL Urine Blood Moderate H (Negative) Urine Nitrite Negative (Negative) Urine Bilirubin Negative (Negative) Urine Urobilinogen Normal (Normal) mg/dL Ur Leukocyte Esterase Small H (Negative) Urine Microscopic RBC 5-15 H (0-3) per hpf Urine Microscopic WBC 5-15 H (0-3) per hpf Ur Squamous Epith Cells Many H (None-Few) per lpf Urine Bacteria None Seen (None-Few) per hpf Hyaline Casts None Seen (None-Few) per lpf - Impressions Impressions Cervical Spine CT 12/27/16 17:35 IMPRESSION: 1. No acute fracture or subluxation of the cervical spine. 2. Mild multilevel degenerative disc disease, as fully detailed above. This could be further characterized with a dedicated cervical MRI, if clinically feasible. D/ / 12/27/2016 19:51:00 [facility] Andrade MD [facility] Interpreting Provider: Mikey Andrade MD Exam - Constitutional Vitals: Temp Pulse Resp BP Pulse Ox 98.3 F 68 18 113/53 93 L 12/28/16 07:35 12/28/16 07:35 12/28/16 07:35 12/28/16 07:35 12/28/16 07:35 General appearance: average body habitus, cooperative, no acute distress - Head Head exam: Present: atraumatic, normal inspection, normocephalic - Eye Eye exam: Present: EOMI, normal appearance, PERRL Pupils: Present: normal accommodation Additional comments: No subconjunctival hemorrhage noted. - ENT ENT exam: Present: mucous membranes moist - Neck Neck exam: Present: normal inspection. Absent: lymphadenopathy - Respiratory Respiratory exam: Present: CTAB. Absent: rales, respiratory distress, rhonchi, wheezes - Cardiovascular Cardiovascular exam: Present: RRR, +S1, +S2 - GI/Abdominal GI/Abdominal exam: Present: normal bowel sounds, soft, tenderness (suprapubic). Absent: distended Additional comments: Mason catheter noted to be draining clear yellow urine. - Extremities Exam Extremities exam: Present: normal inspection. Absent: joint swelling, pedal edema, tenderness - Neurological Exam Neurological exam: Present: alert, oriented X3, no focal deficits - Psychiatric Psychiatric exam: Present: normal affect, normal mood - Skin Skin exam: Present: dry, intact, normal color, warm - VTE Documentation of Mechanical Device: Intermittent pneumatic compression device Consult Discharge Plan - Plan Referrals: NO,PCP [Primary Care Provider] -
[2016-12-28] MEDS: Potassium Chloride Elixir 20 MEQ/15 ML UDC PO SCH (11:10)
[2016-12-28] MEDS: Prenatal Vit/FA 1 EACH TABLET PO SCH (11:11)
[2016-12-28 11:46] LABS: Folate 10.6 ng/mL (7.0-31.4); Vitamin B12 > 2000 pg/mL (213-816)
[2016-12-28] MEDS ORDERED: Naloxone 0.4 MG/ML INJ ONE (13:16)
--- NOTE | 2016-12-28 13:37 | Internal Med Progress Note ---
Date of Encounter: 12/28/16 Time of Encounter: 13:35 - Assessment and plan (1) Syncope Current Visit: Yes Status: Acute Assessment and plan: Likely secondary to acute metabolic encephalopathy and UTI/bacteremia, also opioid overdose duplex carotid showed right carotid plaque, echocardiogram was normal cardiac monitoring Pt is using morphine pump for chronic pain control and she gives bolus morphine by her self, also possibly account for syncope, may hold the bolusing and further adjust the dose with her paperhanger and painter. Qualifiers: Syncope type: vasovagal syncope Qualified Code(s): R55 - Syncope and collapse (2) Acute encephalopathy Current Visit: Yes Status: Acute Assessment and plan: may be also related to gabapentin , decrease dose down to 300 mg TID ( was on 1200 mg HS and 600 mg daily ) (3) Acute renal failure Current Visit: Yes Status: Acute Assessment and plan: Improving . Will continue follow-up renal function. Nephrology consult appreciated IVF Qualifiers: Acute renal failure type: unspecified Qualified Code(s): N17.9 - Acute kidney failure, unspecified (4) Bacteremia Current Visit: Yes Status: Acute Assessment and plan: Ecoli bacteremia and UTI Continue abx treatment, Rocephin 2 g daily day 2 ( was on vanc and cefepime ) day 5 of abx total repeat blood cx. ID consulted (5) Hematoma of right hip Current Visit: Yes Status: Acute Assessment and plan: Due to recently syncope and a fall. Stable H and H. Qualifiers: Encounter type: subsequent encounter Qualified Code(s): S70.01XD - Contusion of right hip, subsequent encounter (6) Hypokalemia Current Visit: Yes Status: Acute Assessment and plan: Resolved We will continue potassium supplement. (7) Leukocytosis Current Visit: Yes Status: Acute Assessment and plan: stable, may be related to infection Qualifiers: Leukocytosis type: unspecified Qualified Code(s): D72.829 - Elevated white blood cell count, unspecified (8) Urinary tract infection Current Visit: Yes Status: Acute Assessment and plan: Plan as above Qualifiers: Urinary tract infection type: acute pyelonephritis Qualified Code(s): N10 - Acute pyelonephritis (9) Chronic back pain Current Visit: Yes Status: Chronic Assessment and plan: Pt has morphine pump for chronic back pain, implanted by her pain specialist. Suspect account for her syncope or dystonia. Follow-up with pain management Qualifiers: Back pain location: low back pain Back pain laterality: unspecified Sciatica presence: without sciatica Qualified Code(s): M54.5 - Low back pain; G89.29 - Other chronic pain (10) Hypertension Current Visit: Yes Status: Chronic Assessment and plan: stable Qualifiers: Hypertension type: essential hypertension Qualified Code(s): I10 - Essential (primary) hypertension (11) Thrombocytopenia Current Visit: Yes Status: Resolved Assessment and plan: resolved, likely secondary to infection - Subjective Interval history: the patient was very somnolent, disoriented in time, not able to answer questions properly, Unable to complete ROS due to confusion - Constitutional Vitals: Temp Pulse Resp BP Pulse Ox 97.8 F 77 18 126/81 100 12/28/16 11:33 12/28/16 11:33 12/28/16 11:33 12/28/16 11:33 12/28/16 11:33 General appearance: Present: A&O X 2, no acute distress, answers questions appropriately - Head Head exam: Present: atraumatic, normocephalic - Eye Eye exam: Present: PERRL, conjuntiva pink, sclera anicteric Pupils: Present: PERRL - Neck Neck exam general surgery: Present: supple, trachea midline. Absent: lymphadenopathy - Respiratory Respiratory exam: Present: CTAB. Absent: accessory muscle use, rales, rhonchi, wheezes - Cardiovascular Cardiovascular exam: Present: RRR, +S1, +S2. Absent: diastolic murmur, gallop, rubs, systolic murmur - GI/Abdominal GI/Abdominal exam: Present: normal bowel sounds, soft, no peritoneal signs. Absent: distended, tenderness - Extremities Exam Extremities exam: Present: pedal edema (+1 pitting edema in both lower extremities), warm, radial pulses palpable and symetrical. Absent: calf tenderness, cyanotic - Neurological Exam Neurological exam: Present: CN II-XII intact, no focal deficits. Absent: oriented X3, pronater drift, facial droop, speech deficit - Skin Skin exam: Present: dry, intact Internal Medicine: Result - Labs CBC & Chem 7: 12/28/16 05:44 12/28/16 05:44 Labs: Short CBC 12/28/16 Range/Units 05:44 WBC 20.2 H (4.3-11.1) K/mcL Hgb 9.7 L (11.5-15.4) g/dL Hct 27.8 L (35.3-44.9) % Plt Count 156 (140-400) K/mcL Neutrophils # 17.8 H (1.6-8.9) K/mcL BMP 12/28/16 05:44 Sodium 135 L Potassium 4.1 Chloride 96 L Carbon Dioxide 26 BUN 45 H Creatinine 1.68 H Glucose 141 H Calcium 9.0 Urine 12/27/16 Range/Units 16:45 Urine Color Yellow (Yellow) Urine Clarity Cloudy A (Clear) Urine pH 6.0 (5.0-8.0) pH Units Ur Specific [place] 1.010 (1.010-1.025) Urine Protein 30 H (Neg-Trace) mg/dL Urine Glucose (UA) Normal (Normal) mg/dL - ABG Interpretation ABG results: ABG ABG pH 7.36 pH Units (7.32-7.45) 12/26/16 23:15 ABG pCO2 47 mmHg (35-45) H 12/26/16 23:15 ABG pO2 90 mmHg (85-104) 12/26/16 23:15 ABG O2 Saturation 97 % (95-98) 12/26/16 23:15 PT/INR, D-dimer PT 14.5 Seconds (9.4-12.1) H 12/24/16 05:31 - Impressions Impressions Cervical Spine CT 12/27/16 17:35 IMPRESSION: 1. No acute fracture or subluxation of the cervical spine. 2. Mild multilevel degenerative disc disease, as fully detailed above. This could be further characterized with a dedicated cervical MRI, if clinically feasible. D/ / 12/27/2016 19:51:00 Mikey Andrade MD / [facility] Interpreting Provider: Mikey Andrade MD - VTE Documentation of Mechanical Device: Intermittent pneumatic compression device Consult Discharge Plan - Plan Referrals: NO,PCP [Primary Care Provider] -
[2016-12-28] MEDS ORDERED: 0.9 % Sodium Chloride 1,000 ML IVC SCH (13:45)
[2016-12-28] MEDS: Patient Taking Own Medication 1 EACH IVP SCH (17:03)
[2016-12-28] MEDS: Gabapentin 300 MG CAPSULE PO SCH ×2 (17:32→20:37)
[2016-12-28 19:23] LABS: Albumin/Globulin Ratio 0.5 (1.1-2.2); Bilirubin,Direct 0.3 mg/dL (0.0-0.5); Bilirubin,Indirect 0.4 mg/dL (0.0-1.2); Bilirubin,Total 0.7 mg/dL (0.2-1.2); Globulin 4.2 g/dL (2.4-3.5); Total Protein 6.2 g/dL (6.0-8.3)
[2016-12-29] MEDS: *HR* Heparin 5,000 UNIT/ML VIAL SQ SCH ×3 (05:52→18:09)
[2016-12-29] MEDS: Thyroid (Amour) 30 MG TABLET PO SCH (05:53)
[2016-12-29 05:58] LABS: Hemoglobin 10.2 g/dL (11.5-15.4); Mean Corpuscular HGB Conc 35.2 g/dL (31.6-35.5); Mean Corpuscular Hemoglobin 29.4 pg (28.0-33.3); Mean Corpuscular Volume 83.6 fL (83.0-100.0); Mean Platelet Volume 9.5 fL (9.4-12.4); Platelet Count 217 K/mcL (140-400); Red Blood Count 3.47 M/mcL (3.82-4.97); Red Cell Distribution Width 14.9 % (11.5-14.5)
[2016-12-29 06:15] LABS: Albumin 2.1 g/dL (3.5-5.0); Albumin/Globulin Ratio 0.5 (1.1-2.2); Bilirubin,Total 0.7 mg/dL (0.2-1.2); Calcium 8.9 mg/dL (8.6-10.8); Globulin 4.5 g/dL (2.4-3.5); Potassium 4.2 mEq/L (3.5-4.5); Total Protein 6.6 g/dL (6.0-8.3)
[2016-12-29] MEDS: Prenatal Vit/FA 1 EACH TABLET PO SCH (09:27)
[2016-12-29] MEDS: Potassium Chloride Elixir 20 MEQ/15 ML UDC PO SCH (09:27)
[2016-12-29] MEDS: Gabapentin 300 MG CAPSULE PO SCH ×3 (09:27→20:21)
--- NOTE | 2016-12-29 10:14 | Internal Med Progress Note ---
Date of Encounter: 12/29/16 Time of Encounter: 10:11 - Assessment and plan (1) Bacteremia Current Visit: Yes Status: Acute Assessment and plan: Acute Metabolic encephalopathy secondary to E coli bacteremia and UTI Continue abx treatment, Rocephin 2 g daily day 3 ( was on vanc and cefepime ) day 6 of abx total repeat blood cx. ID consulted (2) Syncope Current Visit: Yes Status: Acute Assessment and plan: Likely secondary to acute metabolic encephalopathy and Escherichia coli UTI/ bacteremia, also opioid overdose duplex carotid showed right carotid plaque, echocardiogram was normal cardiac monitoring Pt is using morphine pump for chronic pain control and she gives bolus morphine by her self, also possibly account for syncope, may hold the bolusing and further adjust the dose with her house painter helper. Qualifiers: Syncope type: vasovagal syncope Qualified Code(s): R55 - Syncope and collapse (3) Acute encephalopathy Current Visit: Yes Status: Acute Assessment and plan: Secondary to infection, may be also related to gabapentin , decreased dose down to 300 mg TID ( was on 1200 mg HS and 600 mg daily ) May increase her dose if her renal function improves/goes back to normal (4) Acute renal failure Current Visit: Yes Status: Acute Assessment and plan: Likely secondary to infection. Improving . Will continue follow-up renal function. Nephrology consult appreciated Hold Lasix IVF Qualifiers: Acute renal failure type: unspecified Qualified Code(s): N17.9 - Acute kidney failure, unspecified (5) Hematoma of right hip Current Visit: Yes Status: Acute Assessment and plan: Due to recently syncope and a fall. Stable H and H. Qualifiers: Encounter type: subsequent encounter Qualified Code(s): S70.01XD - Contusion of right hip, subsequent encounter (6) Hypokalemia Current Visit: Yes Status: Acute Assessment and plan: Resolved We will continue potassium supplement. (7) Leukocytosis Current Visit: Yes Status: Acute Assessment and plan: Improving related to infection Qualifiers: Leukocytosis type: unspecified Qualified Code(s): D72.829 - Elevated white blood cell count, unspecified (8) Urinary tract infection Current Visit: Yes Status: Acute Assessment and plan: Plan as above Qualifiers: Urinary tract infection type: acute pyelonephritis Qualified Code(s): N10 - Acute pyelonephritis (9) Chronic back pain Current Visit: Yes Status: Chronic Assessment and plan: Pt has morphine pump for chronic back pain, implanted by her pain specialist. Suspect account for her syncope or dystonia. Follow-up with pain management/ consulted during this hospitalization Qualifiers: Back pain location: low back pain Back pain laterality: unspecified Sciatica presence: without sciatica Qualified Code(s): M54.5 - Low back pain; G89.29 - Other chronic pain (10) Hypertension Current Visit: Yes Status: Chronic Assessment and plan: stable Qualifiers: Hypertension type: essential hypertension Qualified Code(s): I10 - Essential (primary) hypertension (11) Thrombocytopenia Current Visit: Yes Status: Resolved Assessment and plan: resolved, likely secondary to infection - Time Spent With Patient Greater than 35 minutes - Subjective Interval history: More awake and oriented, able to answer questions properly, denies any shortness of breath, no abdominal pain, chest pain, complains of irregular back pain and pain on her right hip. Denies any dysuria, no fevers - Constitutional Vitals: Temp Pulse Resp BP Pulse Ox 97.7 F 70 16 111/57 96 12/29/16 07:10 12/29/16 07:10 12/29/16 07:10 12/29/16 07:10 12/29/16 07:10 General appearance: Present: A&O X 3, no acute distress, answers questions appropriately - Head Head exam: Present: atraumatic, normocephalic - Eye Eye exam: Present: PERRL, conjuntiva pink, sclera anicteric Pupils: Present: PERRL - Neck Neck exam general surgery: Present: supple, trachea midline. Absent: lymphadenopathy - Respiratory Respiratory exam: Present: decreased breath sounds, CTAB. Absent: accessory muscle use, rales, rhonchi, wheezes - Cardiovascular Cardiovascular exam: Present: RRR, +S1, +S2. Absent: diastolic murmur, gallop, rubs, systolic murmur - GI/Abdominal GI/Abdominal exam: Present: normal bowel sounds, soft, no peritoneal signs. Absent: distended, tenderness - Extremities Exam Extremities exam: Present: warm, radial pulses palpable and symetrical. Absent : calf tenderness, cyanotic, pedal edema Additional comments: Right hip tenderness, hematoma less than 4 cm in diameter, no ecchymosis. Small area of ecchymosis on the right lower extremity on the medial area of the knee/thigh - Neurological Exam Neurological exam: Present: CN II-XII intact, oriented X3, no focal deficits. Absent: pronater drift, facial droop, speech deficit - Skin Skin exam: Present: dry, intact Internal Medicine: Result - Labs CBC & Chem 7: 12/29/16 05:12 12/29/16 05:12 Labs: Short CBC 12/29/16 Range/Units 05:12 WBC 16.9 H (4.3-11.1) K/mcL Hgb 10.2 L (11.5-15.4) g/dL Hct 29.0 L (35.3-44.9) % Plt Count 217 (140-400) K/mcL BMP 12/28/16 12/29/16 05:44 05:12 Sodium 135 L 136 Potassium 4.1 4.2 Chloride 96 L 96 L Carbon Dioxide 26 28 BUN 45 H 34 H D Creatinine 1.68 H 1.40 H Glucose 141 H 144 H Calcium 9.0 8.9 Liver Function 12/28/16 12/29/16 Range/Units 18:53 05:12 Total Bilirubin 0.7 0.7 (0.2-1.2) mg/dL Direct Bilirubin 0.3 (0.0-0.5) mg/dL AST 16 18 (5-34) Units/L ALT 12 11 (0-55) Units/L Alkaline Phosphatase 109 114 (38-126) Units/L Albumin 2.0 L 2.1 L (3.5-5.0) g/dL - ABG Interpretation ABG results: ABG ABG pH 7.36 pH Units (7.32-7.45) 12/26/16 23:15 ABG pCO2 47 mmHg (35-45) H 12/26/16 23:15 ABG pO2 90 mmHg (85-104) 12/26/16 23:15 ABG O2 Saturation 97 % (95-98) 12/26/16 23:15 PT/INR, D-dimer PT 14.5 Seconds (9.4-12.1) H 12/24/16 05:31 - VTE Documentation of Mechanical Device: Intermittent pneumatic compression device Consult Discharge Plan - Plan Referrals: NO,PCP [Primary Care Provider] -
[2016-12-29] MEDS ORDERED: 0.9 % Sodium Chloride 1,000 ML IVC SCH (10:15)
--- NOTE | 2016-12-29 10:16 | Nephrology Progress Note ---
Date of Encounter: 12/29/16 Time of Encounter: 10:00 Subjective Interval history: Patient has REJI in the setting of a right ureteral calculus with hydronephrosis and most likely a component of volume depletion. She is status post right ureteral stent placement on December 24. Renal fct improving, creat 1.40, excellent urine output. Recommend continuing to hold diuretics. Laying in bed, staetes feeling better, but that pain control is not same as when has pain pump on. Objective - Vital Signs Vital signs: Vital Signs Temp Pulse Resp BP Pulse Ox 12/29/16 07:10 97.7 F 70 16 111/57 96 12/29/16 04:21 98.5 F 83 14 108/70 92 L 12/29/16 00:24 98.4 F 75 16 106/73 97 12/28/16 20:15 98.0 F 66 16 137/83 100 12/28/16 15:14 97.7 F 71 18 127/73 95 12/28/16 11:33 97.8 F 77 18 126/81 100 Intake and Output 12/28/16 12/29/16 12/29/16 23:59 07:59 15:59 Intake Total 480 / 480 200 / 200 600 / 600 Output Total 1450 / 1450 3350 / 3350 1000 / 1000 Balance -970 / -970 -3150 / -3150 -400 / -400 Intake: Oral 480 / 480 200 / 200 600 / 600 Output: Catheter 1450 / 1450 3350 / 3350 1000 / 1000 Other: Meal Dinner Breakfast Percent of Meal Consumed 75% 75% Stool Size Large Stool Consistency soft formed Stool Color Brown Weight 84.6 kg Patient Weight 12/29/16 23:59 Weight 84.6 kg - General Appearance General appearance: Present: well-developed, well-nourished, appears started age EENT: Present: mucous membranes moist Neck: Present: no JVD Respiratory: Present: clear Cardiology: Present: no edema, regular rate, regular rhythm Gastrointestinal: Present: normoactive bowel sounds, no tenderness Integumentary: Present: warm and dry Neurologic: Present: alert and oriented x3 Psychiatric: Present: mood/affect appropriate, cooperative - Lab 12/29/16 05:12 12/29/16 05:12 Most recent lab results ABG pH 7.36 pH Units (7.32-7.45) 12/26/16 23:15 ABG pCO2 47 mmHg (35-45) H 12/26/16 23:15 ABG pO2 90 mmHg (85-104) 12/26/16 23:15 ABG HCO3 26.6 mEQ/L (21-27) 12/26/16 23:15 ABG O2 Saturation 97 % (95-98) 12/26/16 23:15 Calcium 8.9 mg/dL (8.6-10.8) 12/29/16 05:12 Magnesium 1.7 mg/dL (1.6-2.6) 12/28/16 05:44 - VTE Documentation of Mechanical Device: Intermittent pneumatic compression device Consult Discharge Plan - Plan Referrals: NO,PCP [Primary Care Provider] -
--- NOTE | 2016-12-29 10:57 | Pain Management Consultation ---
Date of Encounter: 12/29/16 Time of Encounter: 10:45 Assessment and Plan (1) Acute encephalopathy Current Visit: Yes Status: Acute The assessment and plan as outlined above was discussed with the patient and/or family members who expressed understanding and agreement. All questions were answered. Intrathecal drug delivery basal rate reduced by the pump RN this morning on my order. CLOTHES DESIGNER bolus deactivated. I do not think the IDD system is contributing to her confusion. MSO4 metabolites do not accumulate in appreciable amounts systemically when delivered intrathecally. Thank you for the consultation. History of Present Illness Chief complaint: confusion, request for pump adjustment per primary team HPI: Ms. Yeager is a 56 year old female Patient presented with syncope and confusion. Admitted, found to have UTI and known nephrolithiasis. Patient also found to have electrolyte imbalance. Paitent also received nalaoxone. Patient states she is experiencing a lot of generalized pain. Feels otherwise clear mentally. States she has not had any problems with respect to the use of the pump. Past Med Surg Social Fam HX - Past Medical History Medical history: diabetes, GERD, hypertension Psychiatric history: depression - Past Surgical History Surgical History: cholecystectomy, hysterectomy, orthopedic, other (back surgery , morphine pain pump) - Social History Smoking Status: Never smoker Smokeless Tobacco Status: No Alcohol use: none Drug use: none - Family History Mother Hx Family Genitourinary Disorders: No (No stones.) Medications and Allergies Alendronate Sodium [Fosamax] 70 mg PO QWEEK 06/17/16 [History] Bethanechol Chloride [Urecholine] 25 mg PO TID 06/17/16 [History] Furosemide [Lasix] 40 mg PO DAILY 06/17/16 [History] Gabapentin [Neurontin] 1,200 mg PO HS 06/17/16 [History] Gabapentin [Neurontin] 600 mg PO BID 06/17/16 [History] Omeprazole [PriLOSEC] 40 mg PO DAILY 06/17/16 [History] Vit#98/Ferrous Fum/FA [Kpn Tablet] 1 tab PO DAILY 06/17/16 [ History] Promethazine [Phenergan] 25 mg PO Q8HR PRN 06/17/16 [History] Thyroid,Pork [Willard Thyroid] 60 mg PO DAILY 06/17/16 [History] Venlafaxine HCl [Effexor Xr] 75 mg PO QAM 06/17/16 [History] Ergocalciferol (VITAMIN D2) [Vitamin D2] 50,000 unit PO MO 12/24/16 [History] Fluticasone Propionate Nasal [Flonase] 100 mcg NS DAILY 12/24/16 [History] Metolazone [Zaroxolyn] 5 mg PO BID 12/24/16 [History] Potassium Chloride [K-Tab ER] 20 meq PO BID PRN 12/24/16 [History] Sucralfate [Carafate] 1 gm PO BID 12/24/16 [History] Zoledronic Acid (Reclast) [Reclast 5 MG/100 ML] 5 mg IV AD 12/24/16 [History] Allergies losartan [From Cozaar] Allergy (Verified 12/25/16 07:22) Hives spironolactone [From Aldactone] Allergy (Verified 12/25/16 07:22) Hives Oxycodone [From OxyContin] Adverse Reaction (Verified 12/25/16 07:22) See Comments unresponsive Review of Systems - Constitutional Constitutional ROS IM: as per HPI - Cardiovascular Cardiovascular ROS: no chest pain, no leg edema, no lightheadedness - Respiratory Respiratory: no pain on inspiration, no pain with cough - Gastrointestinal Gastrointestinal: no abdominal pain, no constipation, no diarrhea, no heartburn - Musculoskeletal Musculoskeletal ROS: numbness ( and generalized pain) - Neurological Neurological ROS: behavioral changes - Psychiatric Psychiatric general: depression Physical Exam Initial Vital Signs Temp Pulse Resp BP Pulse Ox 97.6 F 79 17 98/55 96 12/24/16 02:44 12/24/16 02:44 12/24/16 02:44 12/24/16 02:44 12/24/16 02:44 - General physical appearance General physical appearance: awake & oriented, no distress, moderate pain, severe pain - Eyes Eye exam: normal ocular movement - Musculoskeletal Musculoskeletal: other (moving all extremities equally.) - Psychiatric Psychiatric: anxiety, oriented to time, oriented to person, oriented to place Results - Labs 12/29/16 05:12 12/29/16 05:12 Abnormal lab results WBC 16.9 K/mcL (4.3-11.1) H 12/29/16 05:12 RBC 3.47 M/mcL (3.82-4.97) L 12/29/16 05:12 Hgb 10.2 g/dL (11.5-15.4) L 12/29/16 05:12 Hct 29.0 % (35.3-44.9) L 12/29/16 05:12 RDW 14.9 % (11.5-14.5) H 12/29/16 05:12 Immature Gran % 4.4 % (0-4) H 12/27/16 05:29 Neutrophils # 17.8 K/mcL (1.6-8.9) H 12/28/16 05:44 PT 14.5 Seconds (9.4-12.1) H 12/24/16 05:31 ABG pCO2 47 mmHg (35-45) H 12/26/16 23:15 ABG Total CO2 28.0 mEq/L (20-26) H 12/26/16 23:15 Chloride 96 mEq/L (98-109) L 12/29/16 05:12 BUN 34 mg/dL (7-20) H D 12/29/16 05:12 Creatinine 1.40 mg/dL (0.57-1.11) H 12/29/16 05:12 Est GFR ( Amer) 47 (> 60) L 12/29/16 05:12 Est GFR (Non-Af Amer) 39 (> 60) L 12/29/16 05:12 Glucose 144 mg/dL (70-99) H 12/29/16 05:12 POC Glucose 120 (58-89) H 12/26/16 16:46 Iron 19 mcg/dL (50-170) L 12/28/16 05:44 % Saturation 8 % (15-50) L 12/28/16 05:44 Transferrin 166 mg/dL (180-382) L 12/28/16 05:44 Ammonia 14 mcmol/L (18-72) L 12/28/16 18:53 Albumin 2.1 g/dL (3.5-5.0) L 12/29/16 05:12 Globulin 4.5 g/dL (2.4-3.5) H 12/29/16 05:12 Albumin/Globulin Ratio 0.5 (1.1-2.2) L 12/29/16 05:12 Vitamin B12 > 2000 pg/mL (213-816) H 12/28/16 05:44 25-OH Vitamin D Total 29 ng/mL (30-80) L 12/28/16 05:44 Urine Clarity Cloudy (Clear) A 12/27/16 16:45 Urine Protein 30 mg/dL (Neg-Trace) H 12/27/16 16:45 Urine Blood Moderate (Negative) H 12/27/16 16:45 Ur Leukocyte Esterase Small (Negative) H 12/27/16 16:45 Urine Microscopic RBC 5-15 per hpf (0-3) H 12/27/16 16:45 Urine Microscopic WBC 5-15 per hpf (0-3) H 12/27/16 16:45 Ur Squamous Epith Cells Many per lpf (None-Few) H 12/27/16 16:45 Diabetes panel 12/28/16 12/28/16 12/29/16 Range/Units 05:44 18:53 05:12 Sodium 135 L 136 (136-145) mEq/L Potassium 4.1 4.2 (3.5-4.5) mEq/L Chloride 96 L 96 L (98-109) mEq/L Carbon Dioxide 26 28 (19-29) mEq/L BUN 45 H 34 H D (7-20) mg/dL Creatinine 1.68 H 1.40 H (0.57-1.11) mg/dL Glucose 141 H 144 H (70-99) mg/dL Calcium 9.0 8.9 (8.6-10.8) mg/dL AST 16 18 (5-34) Units/L ALT 12 11 (0-55) Units/L Alkaline Phosphatase 109 114 (38-126) Units/L Albumin 2.0 L 2.1 L (3.5-5.0) g/dL Calcium panel 12/28/16 12/28/16 12/28/16 Range/Units 05:44 05:44 18:53 Calcium 9.0 (8.6-10.8) mg/dL Albumin 2.0 L (3.5-5.0) g/dL 25-OH Vitamin D Total 29 L (30-80) ng/mL 12/29/16 Range/Units 05:12 Calcium 8.9 (8.6-10.8) mg/dL Albumin 2.1 L (3.5-5.0) g/dL 25-OH Vitamin D Total (30-80) ng/mL Pituitary panel 12/28/16 12/29/16 Range/Units 05:44 05:12 Sodium 135 L 136 (136-145) mEq/L Potassium 4.1 4.2 (3.5-4.5) mEq/L Chloride 96 L 96 L (98-109) mEq/L Carbon Dioxide 26 28 (19-29) mEq/L BUN 45 H 34 H D (7-20) mg/dL Creatinine 1.68 H 1.40 H (0.57-1.11) mg/dL Glucose 141 H 144 H (70-99) mg/dL Calcium 9.0 8.9 (8.6-10.8) mg/dL Adrenal panel 12/28/16 12/28/16 12/29/16 Range/Units 05:44 18:53 05:12 Sodium 135 L 136 (136-145) mEq/L Potassium 4.1 4.2 (3.5-4.5) mEq/L Chloride 96 L 96 L (98-109) mEq/L Carbon Dioxide 26 28 (19-29) mEq/L BUN 45 H 34 H D (7-20) mg/dL Creatinine 1.68 H 1.40 H (0.57-1.11) mg/dL Glucose 141 H 144 H (70-99) mg/dL Calcium 9.0 8.9 (8.6-10.8) mg/dL Total Bilirubin 0.7 0.7 (0.2-1.2) mg/dL AST 16 18 (5-34) Units/L ALT 12 11 (0-55) Units/L Alkaline Phosphatase 109 114 (38-126) Units/L Albumin 2.0 L 2.1 L (3.5-5.0) g/dL All other labs normal. - VTE Documentation of Mechanical Device: Intermittent pneumatic compression device Consult Discharge Plan - Plan Referrals: NO,PCP [Primary Care Provider] -
--- NOTE | 2016-12-29 11:48 | Infectious Disease Progress No ---
Date of Encounter: 12/29/16 Time of Encounter: 10:30 - Assessment and Plan (1) Leukocytosis Current Visit: Yes Status: Acute WBC 25.7 on admission. Improved to 16 today. Bandemia resolved. Likely secondary to UTI and bacteremia. Continue to monitor daily. Qualifiers: Leukocytosis type: unspecified Qualified Code(s): D72.829 - Elevated white blood cell count, unspecified (2) Bacteremia Current Visit: Yes Status: Acute Causative organism E. coli, crouch-sensitive, per blood cultures drawn 12/24/16 at [facility]. Blood cultures positive 2/2 sets. Repeat blood culture drawn 12/24/16 at [facility] is NGTD. Additional repeat blood cultures drawn 12/28/16 are pending x 2 sets. Source likely UTI. Low index of suspicion for IE. No endocarditis stigmata noted on exam. Continue Rocephin 2 grams IV daily. Duration of treatment depends on the clinical picture, but likely 14 days from the first set of negative blood cultures. Will likely be able to switch to oral antibiotics when ready for discharge. (3) Urinary tract infection Current Visit: Yes Status: Acute Causative organism E. coli per urine culture completed at [facility]. Crouch-sensitive. Repeat urine culture 12/25/16 is negative. Continue antibiotics as above. Qualifiers: Urinary tract infection type: acute pyelonephritis Qualified Code(s): N10 - Acute pyelonephritis (4) Acute renal failure Current Visit: Yes Status: Acute Likely multifactorial --> hydronephrosis + sepsis + dehydration. Improved. Nephrology consulted and following. Avoid nephrotoxins and dose-adjust medications based on creatinine clearance. Qualifiers: Acute renal failure type: unspecified Qualified Code(s): N17.9 - Acute kidney failure, unspecified (5) Ureteral stone Current Visit: Yes Status: Acute CT of the abdomen and pelvis showed 7mm calculus in the right ureter with mild hydroureter and moderate hydronephrosis. Urology consulted and following. Status post cystoscopy with stent placement 12/25/[address] Arteaga. Plan for indefinite stone treatment once her infection resolves. Further management per the urology team. (6) Acute encephalopathy Current Visit: Yes Status: Acute Etiology likely multifactorial --> sepsis + pain medication + dehydration. CT of the head negative. Improved. (7) Syncope Current Visit: Yes Status: Acute Carotid dopplers and ECHO results noted. Per pain management, low likelihood that overuse of pain pump as cause. Management per the primary team. Qualifiers: Syncope type: vasovagal syncope Qualified Code(s): R55 - Syncope and collapse (8) Hematoma of right hip Current Visit: Yes Status: Acute Secondary to fall. Trend H & H. Management per the primary team. Qualifiers: Encounter type: subsequent encounter Qualified Code(s): S70.01XD - Contusion of right hip, subsequent encounter (9) Hypokalemia Current Visit: Yes Status: Resolved (10) Hyponatremia Current Visit: Yes Status: Resolved (11) Chronic back pain Current Visit: Yes Status: Chronic Pain management team consulted. Qualifiers: Back pain location: low back pain Back pain laterality: unspecified Sciatica presence: without sciatica Qualified Code(s): M54.5 - Low back pain; G89.29 - Other chronic pain (12) Hypertension Current Visit: Yes Status: Chronic Qualifiers: Hypertension type: essential hypertension Qualified Code(s): I10 - Essential (primary) hypertension (13) Thrombocytopenia Current Visit: Yes Status: Resolved Likely secondary to sepsis. Continue to trend. - Subjective Interval history: Patient seen and examined. No acute events noted overnight. Patient states she feels better this morning and appears less drowsy. Talking on the phone with family upon my entrance into the room. Denies fevers or chills. Denies chest pain, shortness of breath, or cough. Denies nausea or vomiting and states she ate a little breakfast this morning. Reports one loose BM today. Denies abdominal pain. Complains of chronic back and neck pain. Denies oral thrush or skin lesions. Mason catheter remains in place. Infect Dis PN-Objective Data - Labs CBC & Chem 7: 12/29/16 05:12 12/29/16 05:12 Labs: Laboratory Results - last 24 hr 12/28/16 12/28/16 12/28/16 05:44 05:44 18:53 WBC RBC Hgb Hct MCV MCH MCHC RDW Plt Count MPV Sodium Potassium Chloride Carbon Dioxide BUN Creatinine Est GFR ( Amer) Est GFR (Non-Af Amer) BUN/Creatinine Ratio Glucose Calculated Osmolality Calcium Total Bilirubin 0.7 Direct Bilirubin 0.3 Indirect Bilirubin 0.4 AST 16 ALT 12 Alkaline Phosphatase 109 Ammonia Serum Total Protein 6.2 Albumin 2.0 L Globulin 4.2 H Albumin/Globulin Ratio 0.5 L Vitamin B12 > 2000 H 25-OH Vitamin D Total 29 L Folate 10.6 12/28/16 12/29/16 12/29/16 18:53 05:12 05:12 WBC 16.9 H RBC 3.47 L Hgb 10.2 L Hct 29.0 L MCV 83.6 MCH 29.4 MCHC 35.2 RDW 14.9 H Plt Count 217 MPV 9.5 Sodium 136 Potassium 4.2 Chloride 96 L Carbon Dioxide 28 BUN 34 H D Creatinine 1.40 H Est GFR ( Amer) 47 L Est GFR (Non-Af Amer) 39 L BUN/Creatinine Ratio 24 Glucose 144 H Calculated Osmolality 292 Calcium 8.9 Total Bilirubin 0.7 Direct Bilirubin Indirect Bilirubin AST 18 ALT 11 Alkaline Phosphatase 114 Ammonia 14 L Serum Total Protein 6.6 Albumin 2.1 L Globulin 4.5 H Albumin/Globulin Ratio 0.5 L Vitamin B12 25-OH Vitamin D Total Folate Cultures: Cultures 12/24/16 05:31 Blood Culture - Final Peripheral Venipuncture No growth. 12/25/16 04:05 Urine Culture - Final Urine,Clean Catch No growth. Serology 12/27/16 Range/Units 16:45 Urine Color Yellow (Yellow) Urine Clarity Cloudy A (Clear) Urine pH 6.0 (5.0-8.0) pH Units Ur Specific [place] 1.010 (1.010-1.025) Urine Protein 30 H (Neg-Trace) mg/dL Urine Glucose (UA) Normal (Normal) mg/dL Urine Ketones Negative (Negative) mg/dL Urine Blood Moderate H (Negative) Urine Nitrite Negative (Negative) Urine Bilirubin Negative (Negative) Urine Urobilinogen Normal (Normal) mg/dL Ur Leukocyte Esterase Small H (Negative) Urine Microscopic RBC 5-15 H (0-3) per hpf Urine Microscopic WBC 5-15 H (0-3) per hpf Ur Squamous Epith Cells Many H (None-Few) per lpf Urine Bacteria None Seen (None-Few) per hpf Hyaline Casts None Seen (None-Few) per lpf Exam - Constitutional Vitals: Temp Pulse Resp BP Pulse Ox 97.5 F L 79 16 114/56 99 12/29/16 10:59 12/29/16 10:59 12/29/16 10:59 12/29/16 10:59 12/29/16 10:59 General appearance: average body habitus, cooperative, no acute distress - Head Head exam: Present: atraumatic, normal inspection, normocephalic - Eye Eye exam: Present: EOMI, normal appearance, PERRL Pupils: Present: normal accommodation - ENT ENT exam: Present: mucous membranes moist - Neck Neck exam: Present: normal inspection - Respiratory Respiratory exam: Present: CTAB. Absent: rales, respiratory distress, rhonchi, wheezes - Cardiovascular Cardiovascular exam: Present: RRR, +S1, +S2 - GI/Abdominal GI/Abdominal exam: Present: normal bowel sounds, soft. Absent: distended, tenderness Additional comments: Mason catheter noted to be draining clear yellow urine. - Extremities Exam Extremities exam: Present: normal inspection. Absent: joint swelling, pedal edema, tenderness - Back Exam Back exam: Absent: CVA tenderness (L), CVA tenderness (R) - Neurological Exam Neurological exam: Present: alert, oriented X3, no focal deficits - Psychiatric Psychiatric exam: Present: normal affect, normal mood - Skin Skin exam: Present: dry, intact, normal color, warm - VTE Documentation of Mechanical Device: Intermittent pneumatic compression device Consult Discharge Plan - Plan Referrals: NO,PCP [Primary Care Provider] -
[2016-12-29] MEDS: Patient Taking Own Medication 1 EACH IVP SCH (13:12)
[2016-12-29] MEDS: *HR* OxyCODONE/APAP 5/325 TABLET PO PRN ×2 (13:13→20:21)
[2016-12-30] MEDS: *HR* Heparin 5,000 UNIT/ML VIAL SQ SCH (05:31)
[2016-12-30] MEDS: Thyroid (Amour) 30 MG TABLET PO SCH (05:31)
[2016-12-30] MEDS: *HR* OxyCODONE/APAP 5/325 TABLET PO PRN ×2 (05:33→13:18)
--- NOTE | 2016-12-30 07:51 | Urology Progress Note ---
Date of Encounter: 12/30/16 Time of Encounter: 07:49 - Assessment and Plan (1) Ureteral stone Current Visit: Yes Status: Acute Assessment and plan: We will plan for a right ureteroscopy, laser lithotripsy, and stent placement on January 03, 2017. If she is ready for discharge prior, she will be able to return for outpatient surgery that day. If she remains in the hospital over the weekend, we will just plan to perform the surgery that day. I informed her the risks of the surgery which include but are not limited to bleeding, infection, injury to other structures, need for further procedures, incomplete treatment, need for nephrostomy tube, need for open repair, and the risk of anesthesia. She is willing to proceed. (2) Acute renal failure Current Visit: Yes Status: Acute Assessment and plan: Improving. Appreciate nephrology consultation. Qualifiers: Acute renal failure type: unspecified Qualified Code(s): N17.9 - Acute kidney failure, unspecified (3) Urinary tract infection Current Visit: Yes Status: Acute Assessment and plan: Blood cell count is improving. Continue ceftriaxone. Continue Mason catheter for now to maximally drain the urine. We'll follow along. Appreciate ID recommendations. Qualifiers: Urinary tract infection type: acute pyelonephritis Qualified Code(s): N10 - Acute pyelonephritis Progress Note Narrative: 56 year old woman status post right ureteral stent placement. Urine is clear. Creatinine and WBC are trending down. Patient would like her right ureteral stone treated. I can perform that on January 03, 2017. Objective Initial Vital Signs Temp Pulse Resp BP Pulse Ox 97.6 F 79 17 98/55 96 12/24/16 02:44 12/24/16 02:44 12/24/16 02:44 12/24/16 02:44 12/24/16 02:44 - General physical appearance Present: well developed, well nourished, no distress - Respiratory Present: normal respiratory effort - Abdomen Present: soft - Genitourinary Urine Appearance: Present: Clear - Labs 12/29/16 05:12 12/29/16 05:12 Calcium panel 12/28/16 Range/Units 05:44 25-OH Vitamin D Total 29 L (30-80) ng/mL - VTE Documentation of Mechanical Device: Intermittent pneumatic compression device Consult Discharge Plan - Plan Referrals: NO,PCP [Primary Care Provider] -
[2016-12-30 08:04] VITALS: BP 116/74
--- NOTE | 2016-12-30 08:28 | Nephrology Progress Note ---
Date of Encounter: 12/30/16 Time of Encounter: 08:05 - Assessment and Plan (1) Acute renal failure Current Visit: Yes Status: Acute REJI in setting of right ureteral calculus with hydronephrosis and most likely a component of volume depletion. S/P right ureteral stent placement on December 24. Creat improving, today's labs pending. Excellent urine output. Plan for a right ureteroscopy, laser lithotripsy, and stent placement on January 03, 2017. Qualifiers: Acute renal failure type: unspecified Qualified Code(s): N17.9 - Acute kidney failure, unspecified Subjective Interval history: Patient has REJI in the setting of a right ureteral calculus with hydronephrosis and most likely a component of volume depletion. She is status post right ureteral stent placement on December 24. Renal fct improving, creat 1.40, excellent urine output. Recommend continuing to hold diuretics. Laying in bed, states feeling better. Told by Dr. Arteaga to have stone removal on Tuesday, may go home during interim. Objective - Vital Signs Vital signs: Vital Signs Temp Pulse Resp BP Pulse Ox 12/30/16 07:00 78 20 116/74 98 12/30/16 00:20 97.9 F 69 12 102/61 96 12/29/16 21:00 98.0 F 71 16 108/58 100 12/29/16 20:00 95 12/29/16 15:45 99.5 F 74 16 111/65 98 12/29/16 10:59 97.5 F L 79 16 114/56 99 Intake and Output 12/29/16 12/30/16 12/30/16 23:59 07:59 15:59 Output Total 4200 / 4200 3550 / 3550 Balance -4200 / -4200 -3550 / -3550 Output: Catheter 4200 / 4200 3550 / 3550 Other: Weight 79 kg Patient Weight 12/30/16 23:59 Weight 79 kg - General Appearance General appearance: Present: well-developed, well-nourished, appears started age EENT: Present: mucous membranes moist Neck: Present: no JVD Respiratory: Present: clear Cardiology: Present: no edema, regular rate, regular rhythm Gastrointestinal: Present: normoactive bowel sounds, no tenderness Integumentary: Present: warm and dry Neurologic: Present: alert and oriented x3 Psychiatric: Present: mood/affect appropriate, cooperative - Lab 12/29/16 05:12 12/29/16 05:12 Most recent lab results ABG pH 7.36 pH Units (7.32-7.45) 12/26/16 23:15 ABG pCO2 47 mmHg (35-45) H 12/26/16 23:15 ABG pO2 90 mmHg (85-104) 12/26/16 23:15 ABG HCO3 26.6 mEQ/L (21-27) 12/26/16 23:15 ABG O2 Saturation 97 % (95-98) 12/26/16 23:15 Calcium 8.9 mg/dL (8.6-10.8) 12/29/16 05:12 Magnesium 1.7 mg/dL (1.6-2.6) 12/28/16 05:44 - VTE Documentation of Mechanical Device: Intermittent pneumatic compression device Consult Discharge Plan - Plan Referrals: NO,PCP [Primary Care Provider] -
[2016-12-30 08:46] LABS: Hematocrit 30.1 % (35.3-44.9); Hemoglobin 10.2 g/dL (11.5-15.4); Mean Corpuscular HGB Conc 33.9 g/dL (31.6-35.5); Mean Corpuscular Hemoglobin 28.9 pg (28.0-33.3); Mean Corpuscular Volume 85.3 fL (83.0-100.0); Mean Platelet Volume 9.1 fL (9.4-12.4); Platelet Count 245 K/mcL (140-400); Red Blood Count 3.53 M/mcL (3.82-4.97); Red Cell Distribution Width 14.8 % (11.5-14.5)
[2016-12-30] MEDS: Gabapentin 300 MG CAPSULE PO SCH (08:49)
[2016-12-30] MEDS: Potassium Chloride Elixir 20 MEQ/15 ML UDC PO SCH (08:50)
[2016-12-30] MEDS: Prenatal Vit/FA 1 EACH TABLET PO SCH (08:50)
[2016-12-30 08:51] LABS: Monocytes # 1.3 K/mcL (0.0-1.3)
[2016-12-30 09:01] LABS: Albumin 2.2 g/dL (3.5-5.0); Albumin/Globulin Ratio 0.5 (1.1-2.2); Bilirubin,Total 0.8 mg/dL (0.2-1.2); Calcium 8.8 mg/dL (8.6-10.8); Globulin 4.7 g/dL (2.4-3.5); Total Protein 6.9 g/dL (6.0-8.3)
[2016-12-30] MEDS: Patient Taking Own Medication 1 EACH IVP SCH (09:03)
[2016-12-30 09:13] LABS: Basophils # 0.2 K/mcL (0.0-0.2); Eosinophils # 0.2 K/mcL (0.0-0.6); Large Platelets Present (Not Present); Lymphocytes # 1.8 K/mcL (0.6-4.6); Platelet Estimate Normal (Normal)
--- NOTE | 2016-12-30 11:23 | Discharge Summary ---
Date of Encounter: 12/30/16 Time of Encounter: 11:21 - Discharge Diagnosis (1) Bacteremia Priority: Primary Status: Acute Comments: Acute Metabolic encephalopathy secondary to E coli bacteremia and UTI Rocephin 2 g daily day for, infectious diseases services recommending to complete 14 days total Initially she was on vancomycin and cefepime and today is day 7 of antibiotics (2) Syncope Priority: Secondary Status: Acute Comments: Likely secondary to acute metabolic encephalopathy and Escherichia coli UTI/ bacteremia, also opioids, gabapentin accumulation/intoxication due to acute renal failure Qualifiers: Syncope type: vasovagal syncope Qualified Code(s): R55 - Syncope and collapse (3) Acute encephalopathy Priority: Primary Status: Acute Comments: Secondary to infection, may be also related to gabapentin (4) Acute renal failure Priority: Primary Status: Acute Comments: Likely secondary to infection Qualifiers: Acute renal failure type: unspecified Qualified Code(s): N17.9 - Acute kidney failure, unspecified (5) Hematoma of right hip Priority: Secondary Status: Acute Qualifiers: Encounter type: subsequent encounter Qualified Code(s): S70.01XD - Contusion of right hip, subsequent encounter (6) Hypokalemia Priority: Secondary Status: Resolved (7) Leukocytosis Priority: Secondary Status: Acute Qualifiers: Leukocytosis type: unspecified Qualified Code(s): D72.829 - Elevated white blood cell count, unspecified (8) Urinary tract infection Priority: Primary Status: Acute Qualifiers: Urinary tract infection type: acute pyelonephritis Qualified Code(s): N10 - Acute pyelonephritis (9) Chronic back pain Priority: Secondary Status: Chronic Qualifiers: Back pain location: low back pain Back pain laterality: unspecified Sciatica presence: without sciatica Qualified Code(s): M54.5 - Low back pain; G89.29 - Other chronic pain (10) Hypertension Priority: Secondary Status: Chronic Qualifiers: Hypertension type: essential hypertension Qualified Code(s): I10 - Essential (primary) hypertension (11) Thrombocytopenia Priority: Secondary Status: Resolved (12) Ureteral stone Priority: Secondary Status: Acute Comments: plan for a right ureteroscopy, laser lithotripsy, and stent placement on January 03, 2017. If she is ready for discharge prior, she will be able to return for outpatient surgery that day - Discharge Medications Prescriptions: Cefdinir [Omnicef] 300 mg PO BID #16 capsule Home Medications: Alendronate Sodium [Fosamax] 70 mg PO QWEEK 06/17/16 [History] Bethanechol Chloride [Urecholine] 25 mg PO TID 06/17/16 [History] Furosemide [Lasix] 40 mg PO DAILY 06/17/16 [History] Gabapentin [Neurontin] 1,200 mg PO HS 06/17/16 [History] Gabapentin [Neurontin] 600 mg PO BID 06/17/16 [History] Omeprazole [PriLOSEC] 40 mg PO DAILY 06/17/16 [History] Vit#98/Ferrous Fum/FA [Kpn Tablet] 1 tab PO DAILY 06/17/16 [ History] Promethazine [Phenergan] 25 mg PO Q8HR PRN 06/17/16 [History] Thyroid,Pork [Hugo Thyroid] 60 mg PO DAILY 06/17/16 [History] Venlafaxine HCl [Effexor Xr] 75 mg PO QAM 06/17/16 [History] Ergocalciferol (VITAMIN D2) [Vitamin D2] 50,000 unit PO MO 12/24/16 [History] Fluticasone Propionate Nasal [Flonase] 100 mcg NS DAILY 12/24/16 [History] Sucralfate [Carafate] 1 gm PO BID 12/24/16 [History] Zoledronic Acid (Reclast) [Reclast 5 MG/100 ML] 5 mg IV AD 12/24/16 [History] Cefdinir [Omnicef] 300 mg PO BID #16 capsule 12/30/16 [Rx] Potassium Chloride [K-Tab ER] 20 meq PO DAILY #0 12/30/16 [Rx] Allergies/Adverse Reactions: Allergies losartan [From Cozaar] Allergy (Verified 12/25/16 07:22) Hives spironolactone [From Aldactone] Allergy (Verified 12/25/16 07:22) Hives Oxycodone [From OxyContin] Adverse Reaction (Verified 12/25/16 07:22) See Comments unresponsive Procedures/tests Complete & Pending: Procedures Performed prior 72 hours Category Date Time Status CT cervical spine wo con [CT] Stat Cat Scan 12/27/16 17:35 Completed Date of admission: 12/24/16 03:41 Primary care physician: PCP NO Consults: 12/24/16 02:59 Consult to Office Engineer [CONS] Routine Reason for SW Consult: Patient has financial concerns with stay and insurance coverage/out of pocket pay. 12/24/16 03:48 Consult to Urology [CONS] Routine Consulting Provider: Urology Dena Reason for Consult: Right ureteric calculus Call Completed: No 12/24/16 10:04 Consult to Occupational Therapy [CONS] Routine Comment: Evaluate, develop and implement POC Consult to Physical Therapy [CONS] Routine Comment: Evaluate, develop and implement POC 12/26/16 09:56 Consult to Nephrology [CONS] Routine Consulting Provider: [facility] KATHERINE Reason for Consult: Renal dysfunction Call Completed: Yes 12/27/16 13:47 Consult to Infectious Diseases [CONS] Routine Consulting Provider: Infectious Disease [place] Reason for Consult: Bacteremia Call Completed: Yes 12/28/16 13:48 Consult to Pain Management [CONS] Routine Consulting Provider: Pain Mgt Interventional Dena Reason for Consult: decrease dose of morphine pump Call Completed: Yes - Patient Status Disposition: Home Health Service Condition: Good Overall status at discharge: patient is progressing back to baseline - Discharge Instructions Follow Up With: NO,PCP [Primary Care Provider] - Additional Instructions: Follow with primary care physician within the next 7 days. Complete 8 more days of Cefdinir. Hold metolazone and decrease potassium down to 20 mEq daily. Continue Lasix. Follow with urology on Tuesday to remove stent. Hold gabapentin doses if confused. - Diet and Activity Activity: increase activity as tolerated Diet: low fat, low cholesterol Hospital course: Ms. Yeager is a 56 year old female with a past medical history of diabetes, GERD , hypertension, depression, and chronic back pain with a subcutaneous morphine pain pump. The patient was admitted to the hospital and 2017 for UTI and right ureteral stone. ID was consulted December 27, 2016 for further evaluation and treatment recommendations regarding Escherichia coli bacteremia. On the day of admission, the patient presented to [facility] emergency Department with complaints of vision, syncope, and fall, had leukocytosis and acute kidney injury. Urinalysis was positive for leukocyte esterase, nitrites, too numerous to count white blood cells, and a large amount of blood. Her culture was positive for Escherichia coli. CT of the head was negative. CT the abdomen and pelvis showed a hematoma overlying the right hip at the level of the trochanter, as well as a 7 mm calculus in the right ureter with mild hydroureter and moderate hydronephrosis. Chest x-ray was completed that was negative. Blood cultures were obtained 2 sets that are also growing out Escherichia coli 2 out of 2 sets. The patient was subsequent transferred here for urology consult. She underwent a cystoscopy with stent placement on December [address] Arteaga. She continued to have leukocytosis. Her white blood cell count is improved today from yesterday down to 24.3 thousand with neutrophilic predominance. She did have some bandemia which has resolved. A repeat KUB was done check stent placement which showed satisfactory stent placement. Repeat urine culture she was negative. Blood culture obtained upon admission here is no growth to date 1 out of 1 sets. Initially, the patient was treated with Rocephin 2 g daily, but this was switched from IV cefepime and vancomycin. During hospitalization the patient presented several episodes of confusion, Dr. Olmos was contacted who discontinued the boluses of morphine for her pump and reduced the dose. Also, her doses of gabapentin were momentarily decreased down to 300 3 times a day. The patient's mentation improved. His creatinine today is 1.2 and is ready to be discharged. She will be followed by the urology service on Tuesday in order to possibly remove the stent. - Time Spent with Patient Total time spent providing and/or coordinating discharge services: Greater than 30 minutes (40 min) - Constitutional Vitals: Temp Pulse Resp BP Pulse Ox 97.9 F 78 20 116/74 98 12/30/16 00:20 12/30/16 07:00 12/30/16 07:00 12/30/16 07:00 12/30/16 07:40 General appearance: Present: A&O X 3, no acute distress, answers questions appropriately - Head Head exam: Present: atraumatic, normocephalic - Eye Eye exam: Present: PERRL, conjuntiva pink, sclera anicteric Pupils: Present: PERRL - Neck Neck exam general surgery: Present: supple, trachea midline. Absent: lymphadenopathy - Respiratory Respiratory exam: Present: decreased breath sounds, CTAB. Absent: accessory muscle use, rales, rhonchi, wheezes - Cardiovascular Cardiovascular exam: Present: RRR, +S1, +S2. Absent: diastolic murmur, gallop, rubs, systolic murmur - GI/Abdominal GI/Abdominal exam: Present: normal bowel sounds, soft, no peritoneal signs. Absent: distended, tenderness Additional comments: Right hip hematoma without progression, small areas of ecchymosis in the right knee - Extremities Exam Extremities exam: Present: pedal edema (+1 pitting edema in both lower extremities), warm, radial pulses palpable and symetrical. Absent: calf tenderness, cyanotic - Neurological Exam Neurological exam: Present: CN II-XII intact, oriented X3, no focal deficits. Absent: pronater drift, facial droop, speech deficit - Skin Skin exam: Present: dry, intact - VTE Documentation of Mechanical Device: Intermittent pneumatic compression device
--- NOTE | 2016-12-30 11:25 | Infectious Disease Progress No ---
Date of Encounter: 12/30/16 Time of Encounter: 10:15 - Assessment and Plan (1) Leukocytosis Current Visit: Yes Status: Acute WBC 25.7 on admission. Improved to 14 today. Bandemia resolved. Likely secondary to UTI and bacteremia. Continue to monitor daily. Qualifiers: Qualified Code(s): D72.829 - Elevated white blood cell count, unspecified (2) Bacteremia Current Visit: Yes Status: Acute Causative organism E. coli, crouch-sensitive, per blood cultures drawn 12/24/16 at [facility]. Blood cultures positive 2/2 sets. Repeat blood culture drawn 12/24/16 at [facility] is NGTD. Additional repeat blood cultures drawn 12/28/16 are NGTD x 2 sets. Source likely UTI. Low index of suspicion for IE. No endocarditis stigmata noted on exam. Continue Rocephin 2 grams IV daily. Duration of treatment depends on the clinical picture, but likely 14 days from the first set of negative blood cultures. Will likely be able to switch to oral cefdinir to complete a 14 day course when ready for discharge. Treat through 01/11/17. (3) Urinary tract infection Current Visit: Yes Status: Acute Causative organism E. coli per urine culture completed at [facility]. Crouch-sensitive. Repeat urine culture 12/25/16 is negative. Continue antibiotics as above. Qualifiers: Qualified Code(s): N10 - Acute pyelonephritis (4) Acute renal failure Current Visit: Yes Status: Acute Likely multifactorial --> hydronephrosis + sepsis + dehydration. Improved. Nephrology consulted and following. Avoid nephrotoxins and dose-adjust medications based on creatinine clearance. Qualifiers: Qualified Code(s): N17.9 - Acute kidney failure, unspecified (5) Ureteral stone Current Visit: Yes Status: Acute CT of the abdomen and pelvis showed 7mm calculus in the right ureter with mild hydroureter and moderate hydronephrosis. Urology consulted and following. Status post cystoscopy with stent placement 12/25/[address] Arteaga. Plan for indefinite stone treatment once her infection resolves. Plan for right ureteroscopy, laser lithotripsy, and stent placement on 01/03/17. Further management per the urology team. (6) Acute encephalopathy Current Visit: Yes Status: Acute Etiology likely multifactorial --> sepsis + pain medication + dehydration. CT of the head negative. Resolved. (7) Syncope Current Visit: Yes Status: Acute Carotid dopplers and ECHO results noted. Per pain management, low likelihood that overuse of pain pump as cause. Management per the primary team. Qualifiers: Qualified Code(s): R55 - Syncope and collapse (8) Hematoma of right hip Current Visit: Yes Status: Acute Secondary to fall. Trend H & H. Management per the primary team. Qualifiers: Qualified Code(s): S70.01XD - Contusion of right hip, subsequent encounter (9) Hypokalemia Current Visit: Yes Status: Resolved (10) Hyponatremia Current Visit: Yes Status: Resolved (11) Chronic back pain Current Visit: Yes Status: Chronic Pain management team consulted. Qualifiers: Qualified Code(s): M54.5 - Low back pain; G89.29 - Other chronic pain (12) Hypertension Current Visit: Yes Status: Chronic Qualifiers: Qualified Code(s): I10 - Essential (primary) hypertension (13) Thrombocytopenia Current Visit: Yes Status: Resolved Likely secondary to sepsis. Continue to trend. - Subjective Interval history: Patient seen and examined with her at the bedside. No acute events noted overnight. Patient states she feels better this morning and her mental status appears to be back to baseline. Denies fevers or chills. Denies chest pain, shortness of breath, or cough. Denies nausea or vomiting and states she ate breakfast this morning. Denies abdominal pain. Complains of chronic back and neck pain. Denies oral thrush or skin lesions. Mason catheter remains in place. Infect Dis PN-Objective Data - Labs CBC & Chem 7: 12/30/16 08:25 12/30/16 08:21 Labs: Laboratory Results - last 24 hr 12/30/16 12/30/16 08:21 08:25 WBC 14.7 H RBC 3.53 L Hgb 10.2 L Hct 30.1 L MCV 85.3 MCH 28.9 MCHC 33.9 RDW 14.8 H Plt Count 245 MPV 9.1 L Seg Neutrophils % 75.0 Lymphocytes % 12.0 Monocytes % 9.0 Eosinophils % 1.0 Basophils % 1.0 Metamyelocytes % 1.0 H Myelocytes % 1.0 H Neutrophils # 11.0 H Lymphocytes # 1.8 Monocytes # 1.3 Eosinophils # 0.2 Basophils # 0.2 Platelet Estimate Normal Large Platelets Present A Sodium 129 L D Potassium 4.0 Chloride 93 L Carbon Dioxide 28 BUN 24 H D Creatinine 1.24 H Est GFR ( Amer) 54 L Est GFR (Non-Af Amer) 44 L BUN/Creatinine Ratio 19 Glucose 173 H Calculated Osmolality 276 L Calcium 8.8 Total Bilirubin 0.8 AST 23 ALT 13 Alkaline Phosphatase 92 Serum Total Protein 6.9 Albumin 2.2 L Globulin 4.7 H Albumin/Globulin Ratio 0.5 L Cultures: Cultures 12/28/16 05:44 Blood Culture - Preliminary Peripheral Venipuncture No growth. 12/24/16 05:31 Blood Culture - Final Peripheral Venipuncture No growth. 12/25/16 04:05 Urine Culture - Final Urine,Clean Catch No growth. Serology 12/27/16 Range/Units 16:45 Urine Color Yellow (Yellow) Urine Clarity Cloudy A (Clear) Urine pH 6.0 (5.0-8.0) pH Units Ur Specific Sinclair 1.010 (1.010-1.025) Urine Protein 30 H (Neg-Trace) mg/dL Urine Glucose (UA) Normal (Normal) mg/dL Urine Ketones Negative (Negative) mg/dL Urine Blood Moderate H (Negative) Urine Nitrite Negative (Negative) Urine Bilirubin Negative (Negative) Urine Urobilinogen Normal (Normal) mg/dL Ur Leukocyte Esterase Small H (Negative) Urine Microscopic RBC 5-15 H (0-3) per hpf Urine Microscopic WBC 5-15 H (0-3) per hpf Ur Squamous Epith Cells Many H (None-Few) per lpf Urine Bacteria None Seen (None-Few) per hpf Hyaline Casts None Seen (None-Few) per lpf Exam - Constitutional Vitals: Temp Pulse Resp BP Pulse Ox 97.9 F 78 20 116/74 98 12/30/16 00:20 12/30/16 07:00 12/30/16 07:00 12/30/16 07:00 12/30/16 07:40 General appearance: average body habitus, cooperative, no acute distress - Head Head exam: Present: atraumatic, normal inspection, normocephalic - Eye Eye exam: Present: EOMI, normal appearance, PERRL Pupils: Present: normal accommodation - ENT ENT exam: Present: mucous membranes moist - Neck Neck exam: Present: normal inspection - Respiratory Respiratory exam: Present: CTAB. Absent: rales, respiratory distress, rhonchi, wheezes - Cardiovascular Cardiovascular exam: Present: RRR, +S1, +S2 - GI/Abdominal GI/Abdominal exam: Present: normal bowel sounds, soft. Absent: distended, tenderness Additional comments: Mason catheter noted to be draining clear yellow urine. - Extremities Exam Extremities exam: Present: normal inspection. Absent: joint swelling, pedal edema, tenderness - Back Exam Back exam: Present: normal inspection. Absent: CVA tenderness (L), CVA tenderness (R), paraspinal tenderness (bilateral lumbar spine) - Neurological Exam Neurological exam: Present: alert, oriented X3, no focal deficits - Psychiatric Psychiatric exam: Present: normal affect, normal mood - Skin Skin exam: Present: dry, intact, normal color, warm - VTE Documentation of Mechanical Device: Intermittent pneumatic compression device Consult Discharge Plan - Plan Referrals: NO,PCP [Primary Care Provider] -
--- NOTE | 2016-12-30 11:39 | Physician Discharge Referral ---
Home Health/Hosp Referral Info Transfer to: Home Health Provider in Charge Post Discharge: PCP - Diagnosis (1) Bacteremia Status: Acute (2) Syncope Status: Acute (3) Acute encephalopathy Status: Acute (4) Acute renal failure Status: Acute (5) Hematoma of right hip Status: Acute (6) Hypokalemia Status: Resolved (7) Leukocytosis Status: Acute (8) Urinary tract infection Status: Acute (9) Chronic back pain Status: Chronic (10) Hypertension Status: Chronic (11) Thrombocytopenia Status: Resolved (12) Ureteral stone Status: Acute - Respiratory Orders Smoking Cessation: Smoking cessation has been advised. For more information, call the [place] Tobacco Quit Line at 1-609-JMDC-NOW. - Diet/Nutrition Diet/Nutrition Orders: No Added Salt (HAYDEE) - Services Needed Following services are medically necessary services: Nursing, Home Health Aide, Physical Therapy Home Care Orders: Follow with primary care physician within the next 7 days. Complete 8 more days of Cefdinir. Hold metolazone and decrease potassium down to 20 mEq daily. Continue Lasix. Follow with urology on Tuesday to remove stent. Hold gabapentin doses if confused. - Transfer Medications Prescriptions: Cefdinir [Omnicef] 300 mg PO BID #16 capsule Home Medications: Alendronate Sodium [Fosamax] 70 mg PO QWEEK 06/17/16 [History] Bethanechol Chloride [Urecholine] 25 mg PO TID 06/17/16 [History] Furosemide [Lasix] 40 mg PO DAILY 06/17/16 [History] Gabapentin [Neurontin] 1,200 mg PO HS 06/17/16 [History] Gabapentin [Neurontin] 600 mg PO BID 06/17/16 [History] Omeprazole [PriLOSEC] 40 mg PO DAILY 06/17/16 [History] Vit#98/Ferrous Fum/FA [Kpn Tablet] 1 tab PO DAILY 06/17/16 [ History] Promethazine [Phenergan] 25 mg PO Q8HR PRN 06/17/16 [History] Thyroid,Pork [[place] Thyroid] 60 mg PO DAILY 06/17/16 [History] Venlafaxine HCl [Effexor Xr] 75 mg PO QAM 06/17/16 [History] Ergocalciferol (VITAMIN D2) [Vitamin D2] 50,000 unit PO MO 12/24/16 [History] Fluticasone Propionate Nasal [Flonase] 100 mcg NS DAILY 12/24/16 [History] Sucralfate [Carafate] 1 gm PO BID 12/24/16 [History] Zoledronic Acid (Reclast) [Reclast 5 MG/100 ML] 5 mg IV AD 12/24/16 [History] Cefdinir [Omnicef] 300 mg PO BID #16 capsule 12/30/16 [Rx] Potassium Chloride [K-Tab ER] 20 meq PO DAILY #0 12/30/16 [Rx] Allergies/Adverse Reactions: Allergies losartan [From Cozaar] Allergy (Verified 12/25/16 07:22) Hives spironolactone [From Aldactone] Allergy (Verified 12/25/16 07:22) Hives Oxycodone [From OxyContin] Adverse Reaction (Verified 12/25/16 07:22) See Comments unresponsive Certification: Further, I certify that my clinical findings support that this patient is homebound (i.e. absences from home require considerable and taxing effort and are for medical reasons or church services or infrequently or short duration when for other reasons) because: Homebound Reason: Patient requires assistance of a person or device to safely leave home Attestation: My signature below is to certify that this patient is under my care and that I, or nurse practitioner, or a physician's engineering assistant working with me, has a face-to -face encounter with this patient.
== END 2016-12-30 14:55 | disposition home health service (06) | DRG 689 ==
LOC: 2NENU → SUATTDRO 03:41
PROVIDERS: ADMIT Hospitalist; ATTEND Internal Medicine

== ENCOUNTER 2022-03-22 08:39 | Inpatient (IN) ==
[2022-03-22 09:48] LABS: Basophils # 0.1 K/mcL (0.0-0.2); Basophils % 1.4 %; Eosinophils # 0.3 K/mcL (0.0-0.6); Eosinophils % 6.6 %; Hematocrit 35.8 % (35.3-44.9); Hemoglobin 11.3 g/dL (11.5-15.4); Immature Granulocytes % 0.2 % (0-4); Lymphocytes # 1.1 K/mcL (0.6-4.6); Lymphocytes % 22.6 %; Mean Corpuscular HGB Conc 31.6 g/dL (31.6-35.5); Mean Corpuscular Hemoglobin 30.3 pg (28.0-33.3); Mean Platelet Volume 8.7 fL (9.4-12.4); Monocytes # 0.6 K/mcL (0.0-1.3); Monocytes % 12.4 %; Neutrophils # 2.8 K/mcL (1.6-8.9); Platelet Count 232 K/mcL (140-400); Red Blood Count 3.73 M/mcL (3.82-4.97); Red Cell Distribution Width 12.4 % (11.5-14.5); Segmented Neutrophils % 56.8 %
[2022-03-22 10:01] LABS: Activated Partial Thrombo Time 36.4 Seconds (26.0-36.0)
[2022-03-22 10:04] LABS: BUN/Creatinine Ratio 17 (6-26); Blood Urea Nitrogen 17 mg/dL (8-23); Calcium 9.1 mg/dL (8.6-10.3); Carbon Dioxide 30 mEq/L (23-29); Chloride 104 mEq/L (98-107); Glucose 93 mg/dL (70-105); Osmolality,Calculated 289 (280-300); Potassium 4.3 mEq/L (3.5-5.1); Sodium 139 mEq/L (136-145); eGFR For African Americans > 60 (> 60); eGFR For Non-African Americans 55 (> 60)
[2022-03-22] MEDS ORDERED: Naloxone 0.4 MG/ML INJ IVP PRN (10:41)
[2022-03-22] MEDS ORDERED: Ondansetron 4 MG/2 ML VIAL IVP PRN (10:41)
[2022-03-22] MEDS ORDERED: 0.9 % Sodium Chloride 1,000 ML IVC SCH (10:45)
[2022-03-22] MEDS ORDERED: Perflutren Lipid Microsphere 1.3 ML in 0.9 % Sodium Chloride 8.7 ML IVP PRN (12:04)
[2022-03-22] MEDS: Morphine Sulfate/Pf [Morphine Intrathecdal Pump] IT SCH (14:22)
[2022-03-22] MEDS ORDERED: GI Cocktail 40 ML EACH PO PRN (18:31)
[2022-03-22] MEDS: Acetaminophen 325 MG TABLET PO PRN (20:37)
[2022-03-23] MEDS: Acetaminophen 325 MG TABLET PO PRN ×2 (03:13→23:06)
[2022-03-23 05:24] LABS: Hematocrit 38.9 % (35.3-44.9); Hemoglobin 12.4 g/dL (11.5-15.4); Mean Corpuscular HGB Conc 31.9 g/dL (31.6-35.5); Mean Corpuscular Hemoglobin 30.3 pg (28.0-33.3); Mean Corpuscular Volume 95.1 fL (83.0-100.0); Mean Platelet Volume 8.7 fL (9.4-12.4); Platelet Count 265 K/mcL (140-400); Red Blood Count 4.09 M/mcL (3.82-4.97); Red Cell Distribution Width 12.5 % (11.5-14.5); White Blood Count 6.8 K/mcL (4.3-11.1)
[2022-03-23 05:41] LABS: BUN/Creatinine Ratio 14 (6-26); Blood Urea Nitrogen 15 mg/dL (8-23); Calcium 9.4 mg/dL (8.6-10.3); Carbon Dioxide 31 mEq/L (23-29); Chloride 102 mEq/L (98-107); Glucose 89 mg/dL (70-105); Magnesium 2.4 mg/dL (1.6-2.6); Osmolality,Calculated 288 (280-300); Sodium 139 mEq/L (136-145); eGFR For African Americans > 60 (> 60); eGFR For Non-African Americans 54 (> 60)
[2022-03-23] MEDS: Gabapentin 400 MG CAPSULE PO SCH (08:23)
[2022-03-23] MEDS ORDERED: *HR* HYDROmorphone 2 MG TABLET PO PRN (11:48)
[2022-03-23] MEDS: Morphine Sulfate/Pf [Morphine Intrathecdal Pump] IT SCH (12:11)
[2022-03-23] MEDS ORDERED: Lidocaine Viscous Oral Soln 15 ML SOLUTION MM PRN (14:21)
[2022-03-23] MEDS ORDERED: 0.9 % Sodium Chloride 500 ML IVC ONE (14:22)
[2022-03-23] MEDS: *HR* Midazolam HCl 5 MG/5 ML VIAL IVP PRN ×3 (14:45→14:57)
[2022-03-23] MEDS: *HR* FentaNYL (PF) 100 MCG/2 ML VIAL IVP PRN ×3 (14:45→14:57)
[2022-03-23] MEDS ORDERED: Piperacillin/Tazobactam 3.375 GM in 0.9 % Sodium Chloride Mini Bag 100 ML IVPB SCH (16:22)
[2022-03-23] MEDS ORDERED: Vancomycin 1 EACH in 0.9 % Sodium Chloride 250 ML IVPB PRN (17:00)
[2022-03-24] MEDS: Acetaminophen 325 MG TABLET PO PRN (05:07)
[2022-03-24] MEDS ORDERED: *HR* Enoxaparin 40 MG/0.4 ML SYRINGE SQ SCH (06:00)
[2022-03-24] MEDS: *HR* HYDROmorphone (PF) 1 MG/ML SYRINGE IVP PRN ×3 (06:01→18:23)
[2022-03-24 06:09] LABS: Basophils # 0.1 K/mcL (0.0-0.2); Basophils % 1.2 %; Eosinophils # 0.5 K/mcL (0.0-0.6); Eosinophils % 7.2 %; Hemoglobin 12.1 g/dL (11.5-15.4); Immature Granulocytes % 0.1 % (0-4); Lymphocytes # 1.6 K/mcL (0.6-4.6); Lymphocytes % 22.4 %; Mean Corpuscular HGB Conc 31.8 g/dL (31.6-35.5); Mean Corpuscular Hemoglobin 30.3 pg (28.0-33.3); Mean Platelet Volume 8.8 fL (9.4-12.4); Monocytes # 0.7 K/mcL (0.0-1.3); Monocytes % 10.5 %; Neutrophils # 4.1 K/mcL (1.6-8.9); Platelet Count 260 K/mcL (140-400); Red Cell Distribution Width 12.5 % (11.5-14.5); Segmented Neutrophils % 58.6 %
[2022-03-24 06:31] LABS: BUN/Creatinine Ratio 13 (6-26); Blood Urea Nitrogen 13 mg/dL (8-23); Carbon Dioxide 26 mEq/L (23-29); Chloride 105 mEq/L (98-107); Glucose 83 mg/dL (70-105); Magnesium 2.2 mg/dL (1.6-2.6); Osmolality,Calculated 285 (280-300); Potassium 4.5 mEq/L (3.5-5.1); Sodium 138 mEq/L (136-145); eGFR For African Americans > 60 (> 60); eGFR For Non-African Americans 57 (> 60)
[2022-03-24 08:24] LABS: C-Reactive Protein 9 mg/L (Less than 10)
[2022-03-24] MEDS: Gabapentin 400 MG CAPSULE PO SCH (09:27)
[2022-03-24] MEDS: Morphine Sulfate/Pf [Morphine Intrathecdal Pump] IT SCH (10:20)
[2022-03-24] MEDS ORDERED: Ringers Solution, Lactated 1,000 ML IVC SCH ×3 (11:15→19:47)
[2022-03-24] MEDS ORDERED: *HR* Midazolam HCl 2 MG/2 ML VIAL ONE (12:48)
[2022-03-24] MEDS ORDERED: *HR* FentaNYL (PF) 100 MCG/2 ML VIAL ONE (12:48)
[2022-03-24] MEDS ORDERED: *HR* Propofol 200 MG/20 ML VIAL IVP ONE (12:48)
[2022-03-24] MEDS ORDERED: *HR* Succinylcholine 200 MG/10 ML VIAL IVP ONE (12:54)
[2022-03-24] MEDS ORDERED: Lidocaine HCL 4 ML Topical Solution (Laryng-O-Jet Kit Sterile Pak) TP ONE (12:54)
[2022-03-24] MEDS ORDERED: Lidocaine -MPF 2% 2 ML VIAL ONE (12:54)
[2022-03-24] MEDS ORDERED: Vancomycin 1,000 MG VIAL ONE (13:32)
[2022-03-24] MEDS ORDERED: EPHEDrine 50 MG/ML VIAL ONE (14:04)
[2022-03-24] MEDS ORDERED: Ondansetron 4 MG/2 ML VIAL ONE (14:14)
[2022-03-24] MEDS ORDERED: Ketamine HCL *QUVA* 50mg (1mL) SYRINGE ONE (14:33)
[2022-03-24] MEDS ORDERED: Acetaminophen IV 1,000 MG/100 ML BAG IVPB ONE ×2 (15:15→15:19)
[2022-03-24] MEDS: *HR* HYDROmorphone PF 0.5 MG/0.5 ML SYRINGE IVP PRN ×6 (16:15→17:44)
[2022-03-24] MEDS ORDERED: Ondansetron 4 MG/2 ML VIAL IVP PRN ×3 (16:16→19:47)
[2022-03-24] MEDS: *HR* FentaNYL (PF) 100 MCG/2 ML VIAL IVP PRN ×4 (16:27→17:00)
[2022-03-24] MEDS ORDERED: *HR* OxyCODONE Immed Rel 5 MG TABLET PO PRN (17:19)
[2022-03-24] MEDS ORDERED: Ketorolac 30 MG/ML VIAL IVP PRN (17:19)
[2022-03-24] MEDS ORDERED: Pregabalin 75 MG CAPSULE PO ONE (17:23)
[2022-03-24] MEDS ORDERED: tiZANidine 4 MG TABLET PO SCH (17:23)
[2022-03-24] MEDS ORDERED: *HR* HYDROcodone/Acet 5/325 mg TABLET PO PRN (17:24)
[2022-03-24] MEDS ORDERED: *HR* HYDROmorphone PF 0.5 MG/0.5 ML SYRINGE IVP PRN (18:11)
[2022-03-24] MEDS ORDERED: *HR* HYDROcodone/Acet 5/325 mg TABLET PO ONE (18:13)
[2022-03-24] MEDS ORDERED: *HR* HYDROmorphone (PF) 1 MG/ML SYRINGE ONE (18:22)
[2022-03-24] MEDS ORDERED: Naloxone 0.4 MG/ML INJ IVP PRN ×2 (19:47)
[2022-03-24] MEDS ORDERED: Perflutren Lipid Microsphere 1.3 ML in 0.9 % Sodium Chloride 8.7 ML IVP PRN (19:47)
[2022-03-24] MEDS ORDERED: Morphine Sulfate/Pf [Morphine Intrathecdal Pump] IT SCH (19:47)
[2022-03-24] MEDS ORDERED: Acetaminophen 325 MG TABLET PO PRN (19:47)
[2022-03-24] MEDS ORDERED: Vancomycin 1 EACH in 0.9 % Sodium Chloride 250 ML IVPB PRN (19:47)
[2022-03-24] MEDS: *HR* HYDROcodone/Acet 5/325 mg TABLET PO PRN (22:42)
[2022-03-24] MEDS: CeFAZolin 2 GM/120 ML BAG IVPB SCH (22:45)
[2022-03-24] MEDS: Piperacillin/Tazobactam 3.375 GM in 0.9 % Sodium Chloride Mini Bag 100 ML IVPB SCH (23:38)
[2022-03-24] MEDS: Vancomycin 1,500 MG/265 ML IV.SOLN IVPB SCH (23:46)
[2022-03-25 02:48] LABS: Basophils % 0.1 %; Eosinophils # 0.1 K/mcL (0.0-0.6); Eosinophils % 1.2 %; Hemoglobin 11.2 g/dL (11.5-15.4); Immature Granulocytes % 0.2 % (0-4); Lymphocytes # 0.4 K/mcL (0.6-4.6); Lymphocytes % 4.2 %; Mean Corpuscular Hemoglobin 30.4 pg (28.0-33.3); Mean Corpuscular Volume 94.9 fL (83.0-100.0); Mean Platelet Volume 8.6 fL (9.4-12.4); Monocytes # 0.5 K/mcL (0.0-1.3); Monocytes % 6.4 %; Neutrophils # 7.3 K/mcL (1.6-8.9); Platelet Count 229 K/mcL (140-400); Red Blood Count 3.69 M/mcL (3.82-4.97); Red Cell Distribution Width 12.4 % (11.5-14.5); Segmented Neutrophils % 87.9 %; White Blood Count 8.3 K/mcL (4.3-11.1)
[2022-03-25 03:02] LABS: BUN/Creatinine Ratio 13 (6-26); Blood Urea Nitrogen 13 mg/dL (8-23); Calcium 8.1 mg/dL (8.6-10.3); Carbon Dioxide 25 mEq/L (23-29); Chloride 107 mEq/L (98-107); Glucose 118 mg/dL (70-105); Magnesium 1.9 mg/dL (1.6-2.6); Osmolality,Calculated 291 (280-300); Sodium 140 mEq/L (136-145); eGFR For African Americans > 60 (> 60); eGFR For Non-African Americans 58 (> 60)
[2022-03-25] MEDS: *HR* HYDROmorphone (PF) 1 MG/ML SYRINGE IVP PRN ×2 (03:32→14:45)
[2022-03-25] MEDS: Gabapentin 400 MG CAPSULE PO SCH (09:15)
[2022-03-25] MEDS: CeFAZolin 2 GM/120 ML BAG IVPB SCH ×2 (09:15→09:24)
[2022-03-25] MEDS: Piperacillin/Tazobactam 3.375 GM in 0.9 % Sodium Chloride Mini Bag 100 ML IVPB SCH ×3 (09:15→23:51)
[2022-03-25] MEDS: *HR* HYDROcodone/Acet 5/325 mg TABLET PO PRN ×2 (09:28→20:55)
[2022-03-25] MEDS: Vancomycin 1,500 MG/265 ML IV.SOLN IVPB SCH (23:54)
[2022-03-26] MEDS: *HR* HYDROcodone/Acet 5/325 mg TABLET PO PRN ×2 (03:24→16:08)
[2022-03-26 06:05] LABS: Hematocrit 33.9 % (35.3-44.9); Hemoglobin 10.8 g/dL (11.5-15.4); Mean Corpuscular HGB Conc 31.9 g/dL (31.6-35.5); Mean Corpuscular Hemoglobin 30.7 pg (28.0-33.3); Mean Corpuscular Volume 96.3 fL (83.0-100.0); Platelet Count 195 K/mcL (140-400); Red Blood Count 3.52 M/mcL (3.82-4.97); Red Cell Distribution Width 12.8 % (11.5-14.5); White Blood Count 7.8 K/mcL (4.3-11.1)
[2022-03-26 06:31] LABS: BUN/Creatinine Ratio 11 (6-26); Blood Urea Nitrogen 12 mg/dL (8-23); Calcium 8.3 mg/dL (8.6-10.3); Carbon Dioxide 25 mEq/L (23-29); Chloride 105 mEq/L (98-107); Glucose 143 mg/dL (70-105); Osmolality,Calculated 284 (280-300); Potassium 4.2 mEq/L (3.5-5.1); Sodium 136 mEq/L (136-145); eGFR For African Americans > 60 (> 60); eGFR For Non-African Americans 53 (> 60)
[2022-03-26] MEDS: Gabapentin 400 MG CAPSULE PO SCH (09:48)
[2022-03-26] MEDS: Piperacillin/Tazobactam 3.375 GM in 0.9 % Sodium Chloride Mini Bag 100 ML IVPB SCH ×2 (10:06→16:04)
[2022-03-27] MEDS: Vancomycin 1,500 MG/265 ML IV.SOLN IVPB SCH (00:43)
[2022-03-27] MEDS: Cefepime HCl 2,000 MG in 0.9 % Sodium Chloride 10 ML IVP SCH ×3 (01:26→17:51)
[2022-03-27] MEDS: Acetaminophen 325 MG TABLET PO PRN (01:31)
[2022-03-27 04:39] LABS: Hematocrit 32.7 % (35.3-44.9); Hemoglobin 10.3 g/dL (11.5-15.4); Mean Corpuscular HGB Conc 31.5 g/dL (31.6-35.5); Mean Corpuscular Hemoglobin 30.4 pg (28.0-33.3); Mean Corpuscular Volume 96.5 fL (83.0-100.0); Mean Platelet Volume 8.9 fL (9.4-12.4); Platelet Count 203 K/mcL (140-400); Red Blood Count 3.39 M/mcL (3.82-4.97); Red Cell Distribution Width 12.9 % (11.5-14.5); White Blood Count 8.6 K/mcL (4.3-11.1)
[2022-03-27 04:48] LABS: BUN/Creatinine Ratio 13 (6-26); Blood Urea Nitrogen 11 mg/dL (8-23); Calcium 8.4 mg/dL (8.6-10.3); Carbon Dioxide 26 mEq/L (23-29); Chloride 106 mEq/L (98-107); Glucose 101 mg/dL (70-105); Osmolality,Calculated 284 (280-300); Potassium 4.5 mEq/L (3.5-5.1); Sodium 137 mEq/L (136-145); eGFR For African Americans > 60 (> 60); eGFR For Non-African Americans > 60 (> 60)
[2022-03-27] MEDS: Gabapentin 400 MG CAPSULE PO SCH (07:51)
[2022-03-27] MEDS: *HR* HYDROcodone/Acet 5/325 mg TABLET PO PRN ×2 (08:01→23:43)
[2022-03-27] MEDS ORDERED: Lidocaine -MPF 1% 5 ML AMPUL INFILT ONE (08:57)
[2022-03-27] MEDS: *HR* HYDROmorphone (PF) 1 MG/ML SYRINGE IVP PRN ×2 (14:32→20:47)
[2022-03-27] MEDS: GI Cocktail 40 ML EACH PO PRN (17:52)
[2022-03-28] MEDS: *HR* HYDROmorphone (PF) 1 MG/ML SYRINGE IVP PRN ×6 (00:49→23:55)
[2022-03-28 05:13] LABS: Hematocrit 32.8 % (35.3-44.9); Hemoglobin 10.2 g/dL (11.5-15.4); Mean Corpuscular HGB Conc 31.1 g/dL (31.6-35.5); Mean Corpuscular Volume 96.5 fL (83.0-100.0); Mean Platelet Volume 9.2 fL (9.4-12.4); Platelet Count 223 K/mcL (140-400); Red Cell Distribution Width 12.8 % (11.5-14.5); White Blood Count 7.7 K/mcL (4.3-11.1)
[2022-03-28] MEDS: Cefepime HCl 2,000 MG in 0.9 % Sodium Chloride 10 ML IVP SCH ×2 (05:23→18:31)
[2022-03-28] MEDS: GI Cocktail 40 ML EACH PO PRN (05:24)
[2022-03-28 05:29] LABS: BUN/Creatinine Ratio 12 (6-26); Blood Urea Nitrogen 12 mg/dL (8-23); Calcium 8.4 mg/dL (8.6-10.3); Carbon Dioxide 25 mEq/L (23-29); Chloride 107 mEq/L (98-107); Glucose 142 mg/dL (70-105); Osmolality,Calculated 286 (280-300); Potassium 4.9 mEq/L (3.5-5.1); Sodium 137 mEq/L (136-145); eGFR For African Americans > 60 (> 60); eGFR For Non-African Americans 58 (> 60)
[2022-03-28] MEDS: Gabapentin 400 MG CAPSULE PO SCH (08:12)
[2022-03-28] MEDS: *HR* HYDROcodone/Acet 5/325 mg TABLET PO PRN (18:31)
[2022-03-28] MEDS: Acetaminophen 325 MG TABLET PO PRN (23:23)
[2022-03-29] MEDS: *HR* HYDROcodone/Acet 5/325 mg TABLET PO PRN ×2 (04:29→12:40)
[2022-03-29] MEDS: Cefepime HCl 2,000 MG in 0.9 % Sodium Chloride 10 ML IVP SCH ×2 (04:30→17:16)
[2022-03-29 04:52] LABS: Hematocrit 31.2 % (35.3-44.9); Hemoglobin 9.9 g/dL (11.5-15.4); Mean Corpuscular HGB Conc 31.7 g/dL (31.6-35.5); Mean Corpuscular Hemoglobin 30.3 pg (28.0-33.3); Mean Corpuscular Volume 95.4 fL (83.0-100.0); Mean Platelet Volume 8.8 fL (9.4-12.4); Platelet Count 236 K/mcL (140-400); Red Blood Count 3.27 M/mcL (3.82-4.97); Red Cell Distribution Width 12.6 % (11.5-14.5); White Blood Count 6.8 K/mcL (4.3-11.1)
[2022-03-29 05:15] LABS: BUN/Creatinine Ratio 13 (6-26); Blood Urea Nitrogen 12 mg/dL (8-23); Calcium 8.5 mg/dL (8.6-10.3); Carbon Dioxide 28 mEq/L (23-29); Chloride 108 mEq/L (98-107); Glucose 80 mg/dL (70-105); Osmolality,Calculated 287 (280-300); Potassium 4.7 mEq/L (3.5-5.1); Sodium 139 mEq/L (136-145); eGFR For African Americans > 60 (> 60); eGFR For Non-African Americans > 60 (> 60)
[2022-03-29] MEDS: Gabapentin 400 MG CAPSULE PO SCH (09:10)
[2022-03-29] MEDS: *HR* HYDROmorphone (PF) 1 MG/ML SYRINGE IVP PRN ×2 (09:10→14:24)
[2022-03-29 10:51] VITALS: BP 123/68; PULSE 73; TEMP 97.8; O2SAT 97
[2022-03-29 13:49] LABS: C-Reactive Protein 39 mg/L (Less than 10)
== END 2022-03-29 18:10 | disposition home health service (06) | DRG 310 ==
LOC: 4WAOSI 08:39 → EMEROOARM 08:39 → 4WAOSI 12:29 → SUATTDRO 17:18
PROVIDERS: ADMIT Internal Medicine; ATTEND Pharmacist